=== PATIENT | male | born 1980 | race Hispanic/Latino ===

== ENCOUNTER 2018-12-10 20:15 | Inpatient (IN) | payer MEDICAID, OTHER ==
[2018-12-10] MEDS ORDERED: Sodium Chloride 0.9% 1,000 ML IV STA ×3 (20:38→23:09)
[2018-12-10] MEDS ORDERED: Famotidine 20mg/50ml 20 MG/50 ML BAG IVPB STA (20:38)
--- NOTE | 2018-12-10 20:50 | ED PDOC ---
Arrival/HPI - General Historian: Patient - History of Present Illness Narrative History of Present Illness (Text): Patient is a 38 yr old male with PMH Cystic fibrosis well controlled for many years who presents to [facility] emergency department with new onset epigastric abdominal pain beginning at approximately noon today. He has had associated chills, nausea and 6 episodes of NBNB emesis. Last normal BM was last night 10 pm after having sol[place] islander food for dinner with no immediate symptoms. He endorses worsening pain when taking a deep breath. He otherwise denies MADRIGAL, CP, SOB, dizz iness, fevers, dysuria, stool changes, diarrhea and extremity pain/weakness. 12/10/18 20:45 Time/Duration: Prior to Arrival, 4-6 hours Symptom Onset: Sudden Symptom Course: Worsening Quality: Aching, Cramping Severity Level: 8 <Cookie Polo - Last Filed: 12/10/18 22:48> <Jose Angel - Last Filed: 12/10/18 23:45> - General Chief Complaint: Abdominal Pain Time Seen by Provider: 12/10/18 20:40 Past Medical History - Provider Review Nursing Documentation Reviewed: Yes - Infectious Disease Hx of Infectious Diseases: None - Cardiac Hx Cardiac Disorders: No - Pulmonary Hx Respiratory Disorders: Yes Other/Comment: Cystic Fibrosis - Neurological Hx Neurological Disorder: No - HEENT Hx HEENT Disorder: No - Renal Hx Renal Disorder: No - Endocrine/Metabolic Hx Endocrine Disorders: No - Hematological/Oncological Hx Blood Disorders: No - Integumentary Hx Dermatological Disorder: No - Musculoskeletal/Rheumatological Hx Musculoskeletal Disorders: No - Gastrointestinal Hx Gastrointestinal Disorders: No - Genitourinary/Gynecological Hx Genitourinary Disorders: No - Psychiatric Hx Psychophysiologic Disorder: No Hx Substance Use: Yes - Surgical History Other/Comment: oral surgery - Anesthesia Hx Anesthesia: Yes Hx Anesthesia Reactions: No Hx Malignant Hyperthermia: No <Cookie Polo - Last Filed: 12/10/18 22:48> Family/Social History - Physician Review Nursing Documentation Reviewed: Yes Family/Social History: Unknown Family HX Smoking Status: Light Smoker < 10 Cigarettes Daily Hx Alcohol Use: Yes Frequency of alcohol use: Socially Hx Substance Use: Yes <Cookie Polo - Last Filed: 12/10/18 22:48> Allergies/Home Meds <Cookie Polo - Last Filed: 12/10/18 22:48> <JeanneJose ibarra - Last Filed: 12/10/18 23:45> Allergies/Adverse Reactions: Allergies No Known Allergies Allergy (Verified 12/10/18 20:22) Home Medications: Home Meds Medication Instructions Recorded Confirmed No Known Home Med 12/10/18 12/10/18 Review of Systems - Physician Review All systems were reviewed & negative as marked: Yes - Review of Systems Constitutional: Fatigue. absent: Fevers Eyes: absent: Vision Changes Respiratory: absent: SOB, Cough Cardiovascular: absent: Chest Pain Gastrointestinal: Abdominal Pain, Nausea, Vomiting. absent: Stool Changes, Diarrhea, Hematochezia, Hematemesis Genitourinary Male: absent: Dysuria Musculoskeletal: absent: Arthralgias Skin: absent: Skin Lesions, Laceration Neurological: absent: Headache, Dizziness Endocrine: absent: Diaphoresis <Cookie Polo - Last Filed: 12/10/18 22:48> Physical Exam Vital Signs Reviewed: Yes Vital Signs Temp Pulse Resp BP Pulse Ox 12/10/18 20:16 97.4 F L 69 16 140/92 H 99 Temperature: Afebrile Blood Pressure: Normal Pulse: Regular Respiratory Rate: Normal Appearance: Positive for: Non-Toxic, Uncomfortable Pain Distress: Moderate Mental Status: Positive for: Alert and Oriented X 3 - Systems Exam Head: Present: Atraumatic, Normocephalic Extroacular Muscles: Present: EOMI Mouth: Present: Dry Neck: Present: Normal Range of Motion Respiratory/Chest: Present: Good Air Exchange, Rhonchi (upper and lower lobes bilaterally). No: Respiratory Distress, Accessory Muscle Use, Wheezes, Rales Cardiovascular: Present: Regular Rate and Rhythm, Normal S1, S2. No: Murmurs Abdomen: Present: Tenderness, Guarding. No: Distention, Scars Upper Extremity: Present: Normal Inspection, NORMAL PULSES. No: Cyanosis, Edema Lower Extremity: Present: Normal Inspection, NORMAL PULSES. No: Edema, CALF TENDERNESS Neurological: Present: GCS=15, CN II-XII Intact, Speech Normal Skin: Present: Warm, Dry, Normal Color. No: Rashes Psychiatric: Present: Alert, Oriented x 3, Normal Insight, Normal Concentration <Jennifer Poloah - Last Filed: 12/10/18 22:48> Vital Signs Temp Pulse Resp BP Pulse Ox 12/10/18 20:16 97.4 F L 69 16 140/92 H 99 <Jose Angel - Last Filed: 12/10/18 23:45> Medical Decision Making ED Course and Treatment: impression: 38 yr old male with PMH cystic fibrosis presenting with new onset epigastric abdominal pain nausea vomiting and chills Plan CBC CMP lipase IVF pain control zofran pepcid CXR A/P CT reassess and dispo 12/10/18 20:55 CXR negative for free air under diaphragm, lung markings consistent with cystic fibrosis (my read) 12/10/18 22:17 Lipase>[id number] 12/10/18 22:[address] Amador and medical coding technician, agreed to come evaluate for admission 12/10/18 22:35 - Lab Interpretations Lab Results: 12/10/18 20:30 12/10/18 20:30 Lab Results 12/10/18 20:30: Sodium 140, Potassium 4.3, Chloride 103, Carbon Dioxide 29, Anion Gap 12, BUN 17, Creatinine 0.7 L, Est GFR ( Amer) > 60, Est GFR (Non-Af Amer) > 60, Random Glucose 123 H, Calcium 10.0, Total Bilirubin 0.5, AST 39, ALT 59 H, Alkaline Phosphatase 119, Total Protein 7.6, Albumin 4.6, Globulin 2.9, Albumin/Globulin Ratio 1.6 12/10/18 20:30: WBC 17.2 H, RBC 5.26, Hgb 16.3, Hct 48.1, MCV 91.4, MCH 31.0, MCHC 33.9, RDW 13.2, Plt Count 315, MPV 10.0, Gran % 89.0 H, Lymph % (Auto) 4.1 L, [place] % (Auto) 6.7 H, Eos % (Auto) 0.1 L, Baso % (Auto) 0.1, Gran # 15.32 H, Lymph # (Auto) 0.7 L, [place] # (Auto) 1.2 H, Eos # (Auto) 0.0, Baso # (Auto) 0.01, Neutrophils % (Manual) 89 H, Band Neutrophils % 2, Lymphocytes % (Manual) 4 L, Atypical Lymphs % 3 H, Monocytes % (Manual) 2 Lipase 10,580 - RAD Interpretation Radiology Orders: 12/10/18 20:38 ABD & PELVIS IV CONTRAST ONLY [CT] Stat - Medication Orders Current Medication Orders: Famotidine (Pepcid 20mg/50ml Premix) 20 mg in 50 mls @ 100 mls/hr IVPB STAT STA Stop: 12/10/18 21:07 Sodium Chloride (Sodium Chloride 0.9%) 1,000 mls @ 999 mls/hr IV .Q1H1M STA Stop: 12/10/18 21:38 Ketorolac Tromethamine (Toradol) 30 mg IVP STAT STA Stop: 12/10/18 20:43 Discontinued Medications Ondansetron HCl (Zofran Inj) 4 mg IVP STAT STA Stop: 12/10/18 20:39 <Cookie Polo - Last Filed: 12/10/18 22:48> ED Course and Treatment: Impression: Pt seen and evaluated with resident. Aware and agree with HPI, clinical findings, plan, and management. Pt, whose past medical history includes cystic fibrosis, presented for epigastric abdominal pain with associated chills, nausea, and non-bloody/non-bilious vomiting. Plan: -- CT Abdomen and Pelvis with IV contrast -- CXR -- Labs, lipase -- IV fluids -- Zofran -- Pepcid -- Toradol -- Reassess and disposition 12/10/18 22:35 CT Abdomen and Pelvis: LUNG BASES: The lung bases appear clear. No pleural effusions are seen. LIVER: Unremarkable. GALLBLADDER AND BILE DUCTS: The gallbladder appears within normal limits. No radioopaque gallstones are seen. No biliary ductal dilatation is evident. PANCREAS: Marked peripancreatic stranding is present consistent with acute pancreatitis. Multiple peripancreatic fluid collections/ascites present. There is no evidence of a pancreatis mass. There is no pancreatic ductal dilatation. SPLEEN: Unremarkable. ADRENAL GLANDS: Unremarkable. KIDNEYS, URETERS, AND BLADDER: The kidneys appear within normal limits. There is no hydronephrosis or hydroureter. No urinary calculi are seen. STOMACH AND BOWEL: Unremarkable appearance of the stomach and bowel. No evidence of bowel obstruction. No evidence suggesting enteritis or colitis. APPENDIX: No evidence of acute appendicitis on CT examination. PERITONEUM: Multiple peripancreatic fluid collections/ascites present. No free air. LYMPH NODES: No lymphadenopathy is evident. REPRODUCTIVE: Unremarkable as visualized. VASCULATURE: No evidence of abdominal aortic aneurysm. BONES: No aggressive appearing osseous lesion. No acute osseous pathology evident. IMPRESSION: Acute pancreatitis. Multiple peripancreatic fluid collections/ascites present. There is no evidence of a pancreatis mass. There is no pancreatic ductal dilat ation. Electronically signed on Dec 10, 2018 10:05:39 PM EST by: Miguel Delvalle M.D., MELE Certified By ABR & CBCCT Fellowship Trained MRI and CT Specialist 12/10/18 22:[address] Amador, who is aware and agree with plan. Accepts pt in to hospitalist service. presidential support specialist corrections counselor notified. - Lab Interpretations Lab Results: Total Bilirubin 0.5 mg/dL (0.2-1.3) 12/10/18 20:30 AST 39 U/L (17-59) 12/10/18 20:30 ALT 59 U/L (7-56) H 12/10/18 20:30 Alkaline Phosphatase 119 U/L (38-126) 12/10/18 20:30 Total Protein 7.6 g/dL (5.8-8.3) 12/10/18 20:30 Albumin 4.6 g/dL (3.0-4.8) 12/10/18 20:30 Globulin 2.9 gm/dL 12/10/18 20:30 Albumin/Globulin Ratio 1.6 (1.1-1.8) 12/10/18 20:30 - RAD Interpretation Radiology Orders: 12/10/18 20:38 ABD & PELVIS IV CONTRAST ONLY [CT] Stat 12/10/18 20:50 CHEST ONE VIEW [RAD] Stat - Medication Orders Current Medication Orders: Sodium Chloride (Sodium Chloride 0.9%) 1,000 mls @ 999 mls/hr IV .Q1H1M STA Stop: 12/10/18 21:38 Last Admin: 12/10/18 20:51 Dose: 999 mls/hr eMAR Start Stop Document 12/10/18 20:51 JOL (Rec: 12/10/18 20:51 JOL [id number]) Intravenous Solution Start Date 12/10/18 Start Time 20:51 End Date 12/10/18 End time 21:52 Total Infusion Time 61 Discontinued Medications Famotidine (Pepcid 20mg/50ml Premix) 20 mg in 50 mls @ 100 mls/hr IVPB STAT STA Stop: 12/10/18 21:07 Last Admin: 12/10/18 20:51 Dose: 100 mls/hr eMAR Start Stop Document 12/10/18 20:51 JOL (Rec: 12/10/18 20:51 [id number] Intravenous Solution Start Date 12/10/18 Start Time 20:51 End Date 12/10/18 End time 21:21 Total Infusion Time 30 Ketorolac Tromethamine (Toradol) 30 mg IVP STAT STA Stop: 12/10/18 20:43 Last Admin: 12/10/18 20:45 Dose: 30 mg MAR Pain Assessment Document 12/10/18 20:45 JOL (Rec: 12/10/18 21:14 [id number] Pain Reassessment Is this a pain reassessment? No Sleep Is patient sleeping during reassessment? No Presence of Pain Presence of Pain Yes Pain Scale Used Protocol: PSCALES Pain Scale Used Numeric Location Upper or Lower Upper Pain Location Body Site Abdomen Description Intensity of Pain at present 8 IVP Administration Document 12/10/18 20:45 JOL (Rec: 12/10/18 21:14 [id number] Charges for Administration # of IVP Administrations 1 Ondansetron HCl (Zofran Inj) 4 mg IVP STAT STA Stop: 12/10/18 20:39 Last Admin: 12/10/18 20:50 Dose: 4 mg IVP Administration Document 12/10/18 20:50 JOL (Rec: 12/10/18 20:51 [id number]) Charges for Administration # of IVP Administrations 1 <Jose Angel - Last Filed: 12/10/18 23:45> - PA / SENIOR BENEFITS SPECIALIST / Resident Statement LISA has reviewed & agrees with the documentation as recorded. LISA has examined the patient and agrees with the treatment plan. <Jose Angel - Last Filed: 12/10/18 23:45> Disposition/Present on Arrival - Present on Arrival Any Indicators Present on Arrival: No History of DVT/PE: No History of Uncontrolled Diabetes: No Urinary Catheter: No History of Decub. Ulcer: No History Surgical Site Infection Following: None - Disposition Have Diagnosis and Disposition been Completed?: Yes Disposition Time: 22:29 Patient Plan: Admission <Cookie Polo - Last Filed: 12/10/18 22:48> <Jose Angel - Last Filed: 12/10/18 23:45> - Disposition Diagnosis: Acute pancreatitis Disposition: HOSPITALIZED Patient Problems: Current Active Problems Problem Status Onset Acute pancreatitis Acute Condition: GOOD
[2018-12-10 20:54] LABS: BASO # 0.01 K/mm3 (0.0-2.0); BASO % 0.1 % (0.0-3.0); EOS % 0.1 % (1.5-5.0); GRAN # 15.32 (1.4-6.5); HEMOGLOBIN 16.3 g/dL (14.0-18.0); LYMPH # 0.7 (1.2-3.4); LYMPH % 4.1 % (22.0-35.0); MEAN CELL VOLUME 91.4 fl (80.0-105.0); MEAN CORPUSCULAR HGB CONC 33.9 g/dl (31.0-37.0); MONO # 1.2 (0.1-0.6); MONO % 6.7 % (1.0-6.0); PLATELET COUNT 315 10^3/uL (120.0-450.0); RBC 5.26 10^6/uL (3.5-6.1); RED CELL DISTRIBUTION WIDTH 13.2 % (11.5-14.5); WHITE BLOOD COUNT 17.2 10^3/uL (4.5-11.0)
[2018-12-10 20:55] LABS: ALB/GLOB RATIO 1.6 (1.1-1.8); ALBUMIN 4.6 g/dL (3.0-4.8); ALT/SGPT 59 U/L (7-56); AST/SGOT 39 U/L (17-59); BLOOD UREA NITROGEN 17 mg/dL (7-21); GFR NON-AFRICAN AMERICAN > 60
[2018-12-10] MEDS ORDERED: Iohexol 350 MG/100 ML VIAL ONE (21:03)
[2018-12-10 21:33] LABS: ATYPICAL LYMPHOCYTE 3 % (0.0-0.0); BAND 2 % (0-2); LYMPHOCYTE 4 % (22.0-35.0); MONOCYTE 2 % (1.0-6.0); NEUTROPHIL 89 % (50.0-70.0)
[2018-12-10] MEDS ORDERED: metroNIDAZOLE IV 500 mg/100 ml 500 MG/100 ML BAG IVPB STA (22:31)
[2018-12-10] MEDS ORDERED: Morphine 2 mg/ml ISec IM PRN (23:05)
--- NOTE | 2018-12-10 23:18 | CP.PCM.HP ---
<Asa Seo - Last Filed: 12/11/18 00:06> History of Present Illness - History of Present Illness History of Present Illness: Asa Seo, PGY-1, Internal Medicine History and Physical for Dr. Amador 38 year old male with past medical history of Cystic Fibrosis presents with severe abdominal pain that started at 11:00 AM on 12/10. Patient reports that he woke up at 8:00 on 12/10, went to urinate and went back to sleep. He woke up at 11:00, urinated again, and after drinking some milk, started to have sharp, constant supraumbilical abdominal pain that radiated to the back. No exa cerbating or relieving factors were present. He has had 6 episodes of nonbloody vomitus today. His last normal bowel movement was on 12/09 around 19:00. Patient reports shortness of breath correlated to the abdominal pain which has not allowed him to take a full breath. Patient denies fever, chest pain, heart palpitations, constipation, diarrhea, dysuria, hematuria. 12-point ROS was negative except for what was mentioned above. PMH: Cystic Fibrosis PSH: oral surgery in 1999 Allergies: NKDA FMHx: diabetes mellitus, hypertension, thyroid cancer, cirrhosis, COPD SHx: 3 margaritas last night; generally drinks 2-3 times weekly. He smokes 1/2 PPD for 15 years; he uses marijuana occasionally and last used last night at 23:00 PMD: denies Pharmacy: denies Home Rx: denies Present on Admission - Present on Admission Any Indicators Present on Admission: No Review of Systems - Review of Systems Review of Systems: except for what is mentioned in the HPI Past Patient History - Infectious Disease Hx of Infectious Diseases: None - Past Social History Smoking Status: Light Smoker < 10 Cigarettes Daily - CARDIAC Hx Cardiac Disorders: No - PULMONARY Hx Respiratory Disorders: Yes Other/Comment: Cystic Fibrosis - NEUROLOGICAL Hx Neurological Disorder: No - HEENT Hx HEENT Problems: No - RENAL Hx Chronic Kidney Disease: No - ENDOCRINE/METABOLIC Hx Endocrine Disorders: No - HEMATOLOGICAL/ONCOLOGICAL Hx Blood Disorders: No - INTEGUMENTARY Hx Dermatological Problems: No - MUSCULOSKELETAL/RHEUMATOLOGICAL Hx Musculoskeletal Disorders: No - GASTROINTESTINAL Hx Gastrointestinal Disorders: No - GENITOURINARY/GYNECOLOGICAL Hx Genitourinary Disorders: No - PSYCHIATRIC Hx Psychophysiologic Disorder: No Hx Substance Use: Yes - SURGICAL HISTORY Other/Comment: oral surgery - ANESTHESIA Hx Anesthesia: Yes Hx Anesthesia Reactions: No Hx Malignant Hyperthermia: No Meds Allergies/Adverse Reactions: Allergies Allergy/AdvReac Type Severity Reaction Status Date / Time No Known Allergies Allergy Verified 12/10/18 20:22 Physical Exam - Constitutional Appears: Well, Non-toxic, No Acute Distress - Head Exam Head Exam: ATRAUMATIC, NORMAL INSPECTION, NORMOCEPHALIC - Eye Exam Eye Exam: EOMI, PERRL - ENT Exam ENT Exam: Mucous Membranes Moist - Respiratory Exam Respiratory Exam: Clear to Auscultation Bilateral, NORMAL BREATHING PATTERN - Cardiovascular Exam Cardiovascular Exam: REGULAR RHYTHM, RRR - GI/Abdominal Exam GI & Abdominal Exam: Hypoactive Bowel Sounds, Soft, Tenderness (supraumbilical). absent: Guarding, Rebound, Rigid - Extremities Exam Extremities exam: Positive for: full ROM - Neurological Exam Neurological exam: Alert, CN II-XII Intact, Oriented x3 - Skin Skin Exam: Dry, Intact, Normal Color Results - Vital Signs Recent Vital Signs: Last Vital Signs Temp 97.4 F L 12/10/18 20:16 Pulse 69 12/10/18 20:16 Resp 16 12/10/18 20:16 BP 140/92 H 12/10/18 20:16 Pulse Ox 99 12/10/18 20:16 - Labs Result Diagrams: 12/10/18 20:30 12/10/18 20:30 Labs: Laboratory Results - last 24 hr 12/10/18 12/10/18 12/10/18 20:30 20:30 20:30 WBC 17.2 H RBC 5.26 Hgb 16.3 Hct 48.1 MCV 91.4 MCH 31.0 MCHC 33.9 RDW 13.2 Plt Count 315 MPV 10.0 Gran % 89.0 H Lymph % (Auto) 4.1 L [place] % (Auto) 6.7 H Eos % (Auto) 0.1 L Baso % (Auto) 0.1 Gran # 15.32 H Lymph # (Auto) 0.7 L [place] # (Auto) 1.2 H Eos # (Auto) 0.0 Baso # (Auto) 0.01 Neutrophils % (Manual) 89 H Band Neutrophils % 2 Lymphocytes % (Manual) 4 L Atypical Lymphs % 3 H Monocytes % (Manual) 2 Sodium 140 Potassium 4.3 Chloride 103 Carbon Dioxide 29 Anion Gap 12 BUN 17 Creatinine 0.7 L Est GFR ( Amer) > 60 Est GFR (Non-Af Amer) > 60 Random Glucose 123 H Calcium 10.0 Total Bilirubin 0.5 AST 39 ALT 59 H Alkaline Phosphatase 119 Total Protein 7.6 Albumin 4.6 Globulin 2.9 Albumin/Globulin Ratio 1.6 Lipase 33940 H Assessment & Plan - Assessment and Plan (Free Text) Assessment: 38 year old male with past medical history of Cystic Fibrosis presents with severe abdominal pain that started at 11:00 AM on 12/10. Abdominal CT shows pancreatitis with multiple fluid collections/ascites present. No evidence of pancreatic mass. No pancreatic duct dilation. Plan: Acute pancreatitis -History of pancreatitis -Possible etiology of cystic fibrosis. -Evaluate for other causes with serum alcohol level, UDS, and lipid panel for alcohol induced vs. hypertriglyceridemia induced vs. tobacco induceed -Abdominal U/S in the morning to evaluate for gallstone induced pancreatitis -NPO -IV fluids at 150cc/hr -Morphine for severe pain and toradol for moderate pain -Zofran PRN for nausea/vomiting -GI, Dr. Banks, consulted for recommendations. Leukocytosis -WBC: 17.2 -Likely due to pancreatitis, but cannot rule out infection -CXR shows no evidence of infection -Blood culture ordered -Patient given one dose of flagyl and ceftriaxone in the ED GI prophylaxis: protonix 40 mg daily DVT prophylaxis: lovenox 40 mg daily Patient plan discussed with Dr. Amador. - Date & Time Date: 12/11/18 Time: 00:05 <Ludivina Amador - Last Filed: 12/11/18 06:20> Results - Vital Signs Recent Vital Signs: Last Vital Signs Temp 97.4 F L 12/10/18 20:16 Pulse 69 12/10/18 20:16 Resp 18 12/11/18 01:13 BP 140/92 H 12/10/18 20:16 Pulse Ox 99 12/10/18 20:16 - Labs Result Diagrams: 12/10/18 20:30 12/10/18 20:30 Labs: Laboratory Results - last 24 hr 12/10/18 12/10/18 12/10/18 20:30 20:30 20:30 WBC 17.2 H RBC 5.26 Hgb 16.3 Hct 48.1 MCV 91.4 MCH 31.0 MCHC 33.9 RDW 13.2 Plt Count 315 MPV 10.0 Gran % 89.0 H Lymph % (Auto) 4.1 L [place] % (Auto) 6.7 H Eos % (Auto) 0.1 L Baso % (Auto) 0.1 Gran # 15.32 H Lymph # (Auto) 0.7 L [place] # (Auto) 1.2 H Eos # (Auto) 0.0 Baso # (Auto) 0.01 Neutrophils % (Manual) 89 H Band Neutrophils % 2 Lymphocytes % (Manual) 4 L Atypical Lymphs % 3 H Monocytes % (Manual) 2 Sodium 140 Potassium 4.3 Chloride 103 Carbon Dioxide 29 Anion Gap 12 BUN 17 Creatinine 0.7 L Est GFR ( Amer) > 60 Est GFR (Non-Af Amer) > 60 Random Glucose 123 H Calcium 10.0 Total Bilirubin 0.5 AST 39 ALT 59 H Alkaline Phosphatase 119 Total Protein 7.6 Albumin 4.6 Globulin 2.9 Albumin/Globulin Ratio 1.6 Triglycerides Cholesterol LDL Cholesterol Direct HDL Cholesterol Lipase 55106 H Alcohol, Quantitative 12/10/18 12/10/18 20:30 22:03 WBC RBC Hgb Hct MCV MCH MCHC RDW Plt Count MPV Gran % Lymph % (Auto) [place] % (Auto) Eos % (Auto) Baso % (Auto) Gran # Lymph # (Auto) [place] # (Auto) Eos # (Auto) Baso # (Auto) Neutrophils % (Manual) Band Neutrophils % Lymphocytes % (Manual) Atypical Lymphs % Monocytes % (Manual) Sodium Potassium Chloride Carbon Dioxide Anion Gap BUN Creatinine Est GFR ( Amer) Est GFR (Non-Af Amer) Random Glucose Calcium Total Bilirubin AST ALT Alkaline Phosphatase Total Protein Albumin Globulin Albumin/Globulin Ratio Triglycerides 55 Cholesterol 160 LDL Cholesterol Direct 94 HDL Cholesterol 50 Lipase Alcohol, Quantitative < 10 Attending/Attestation - Attestation I have personally seen and examined this patient.: Yes I have fully participated in the care of the patient.: Yes I have reviewed all pertinent clinical information: Yes
[2018-12-11 00:11] LABS: HDL CHOLESTEROL 50 mg/dL (29-60)
[2018-12-11 00:21] LABS: LDL CHOLESTEROL 94 mg/dL (0-129)
[2018-12-11] MEDS: Morphine 2 mg/ml ISec IVP PRN ×2 (00:41→20:25)
[2018-12-11 04:28] VITALS: BMI 25.8
[2018-12-11 06:50] LABS: BASO # 0.01 K/mm3 (0.0-2.0); BASO % 0.1 % (0.0-3.0); EOS # 0.1 (0.0-0.7); EOS % 0.5 % (1.5-5.0); GRAN # 8.89 (1.4-6.5); HEMOGLOBIN 14.6 g/dL (14.0-18.0); LYMPH # 0.9 (1.2-3.4); MEAN CELL VOLUME 91.3 fl (80.0-105.0); MEAN CORPUSCULAR HEMOGLOBIN 30.1 pg (25.0-35.0); MEAN PLATELET VOLUME 9.9 fl (7.0-11.0); MONO % 9.4 % (1.0-6.0); RBC 4.85 10^6/uL (3.5-6.1); RED CELL DISTRIBUTION WIDTH 13.5 % (11.5-14.5); WHITE BLOOD COUNT 10.8 10^3/uL (4.5-11.0)
[2018-12-11 07:41] LABS: ALB/GLOB RATIO 1.4 (1.1-1.8); ALBUMIN 3.6 g/dL (3.0-4.8); ALT/SGPT 52 U/L (7-56); AST/SGOT 27 U/L (17-59); BLOOD UREA NITROGEN 17 mg/dL (7-21); GFR NON-AFRICAN AMERICAN > 60
--- NOTE | 2018-12-11 09:49 | CT ---
Date of service: 12/10/2018 PROCEDURE: CT Abdomen and Pelvis with contrast HISTORY: abd pain COMPARISON: December 11, 2018 abdominal ultrasound TECHNIQUE: Intravenous contrast dose: 100 cc Omnipaque 300 Radiation dose: Total exam DLP = 584.68 mGy-cm. This CT exam was performed using one or more of the following dose reduction techniques: Automated exposure control, adjustment of the mA and/or kV according to patient size, and/or use of iterative reconstruction technique. FINDINGS: LOWER THORAX: Unremarkable. LIVER: Hepatic steatosis. No focal masses. No intrahepatic bile duct dilatation or perihepatic ascites. No intrahepatic bile duct dilatation. No abnormalities with respect to the common bile duct. GALLBLADDER AND BILE DUCTS: Unremarkable. PANCREAS: Diffusely edematous pancreas. No CT evidence of necrotizing pancreatitis. Peripancreatic inflammatory changes. Associated ascites in the upper abdomen. SPLEEN: Unremarkable. ADRENALS: Unremarkable. No mass. KIDNEYS AND URETERS: Unremarkable. No hydronephrosis. No solid mass. VASCULATURE: Unremarkable. No aortic aneurysm. No atherosclerotic calcification or mural plaque present. BOWEL: Unremarkable. No obstruction. No gross mural thickening. APPENDIX: Normal appendix. PERITONEUM: Low volume upper abdominal, peripancreatic fluid. No free air. LYMPH NODES: Unremarkable. No enlarged lymph nodes. BLADDER: Unremarkable. REPRODUCTIVE: Unremarkable. BONES: No acute fracture. OTHER FINDINGS: None. IMPRESSION: CT manifestations of acute pancreatitis, diffuse. No evidence of necrotizing pancreatitis. Peripancreatic inflammatory changes and fluid. Additional benign and/or incidental findings described above. Concordant results (preliminary interpretation) provided by [employer]. Procedure Completed: 21:42. Preliminary Report: Dictated and Authenticated: 22:05. Final Interpretation: 09:45. December 11, 2018
[2018-12-11] MEDS: Enoxaparin 40 mg Syringe SC SCH (09:51)
[2018-12-11] MEDS ORDERED: cefTRIAXone 1 gm 1 GM/100 ML BAG IVPB SCH (10:00)
--- NOTE | 2018-12-11 10:00 | US ---
Date of service: 12/11/2018 HISTORY: Panchreatitis etiology COMPARISON: December 10, 2018. CT abdomen and pelvis. TECHNIQUE: Sonographic evaluation of the abdomen. FINDINGS: LIVER: Measures 16.1 cm. Hepatopedal blood flow. Fatty infiltration manifest ultrasonographically as increased echogenicity of the liver parenchyma. No mass. No intrahepatic bile duct dilatation.Incidental finding(s): Focal fatty sparing amalia hepatis region of the liver, the affected area measures 4.4 x 3.1 x 4.7 cm. GALLBLADDER: Cholelithiasis. Negative study for gallbladder wall thickening, pericholecystic fluid, sonographic Shannon's sign.Incidental finding(s): Echogenic foci likely small gallbladder polyps adherent to the wall of the gallbladder. COMMON BILE DUCT: Measures 4.7 mm. No stones. No dilatation. PANCREAS: Edematous pancreas better visualized on CT. No focal pancreatic abnormalities. RIGHT KIDNEY: Measures cm. Normal echogenicity. No calculus, mass, or hydronephrosis. LEFT KIDNEY: Measures cm. Normal echogenicity. No calculus, mass, or hydronephrosis. SPLEEN: Normal in size and contour. No mass. AORTA: No aneurysmal dilatation. IVC: Unremarkable. OTHER FINDINGS: Trace intra-abdominal fluid. IMPRESSION: Cholelithiasis. No sonographic evidence of acute cholecystitis. No evidence of choledocholithiasis. Edematous findings the pancreas consistent with acute pancreatitis-findings better visualized on recent CT.
--- NOTE | 2018-12-11 10:15 | RAD ---
Date of service: 12/10/2018 PROCEDURE: CHEST RADIOGRAPH, 1 VIEW HISTORY: hx of cystic fibrosis, r/o free air COMPARISON: None available. FINDINGS: LUNGS: Prominent interstitial markings without discrete infiltrate. PLEURA: No pneumothorax or pleural fluid seen. CARDIOVASCULAR: No aortic atherosclerotic calcification present. Normal. OSSEOUS STRUCTURES: No significant abnormalities. VISUALIZED UPPER ABDOMEN: Normal. OTHER FINDINGS: None. IMPRESSION: No visible free air. Increased interstitial markings consistent with clinical diagnosis of cystic fibrosis.
[2018-12-11] MEDS: Lactated Ringer's 1,000 ML IV SCH ×3 (11:05→22:19)
[2018-12-11] MEDS ORDERED: Morphine 2 mg/ml ISec IVP ONE (22:00)
[2018-12-12] MEDS: Morphine 2 mg/ml ISec IVP PRN ×4 (02:40→20:37)
[2018-12-12] MEDS: Lactated Ringer's 1,000 ML IV SCH ×3 (05:22→19:57)
[2018-12-12 07:08] LABS: BASO # 0.01 K/mm3 (0.0-2.0); BASO % 0.1 % (0.0-3.0); EOS # 0.2 (0.0-0.7); EOS % 2.1 % (1.5-5.0); GRAN # 5.81 (1.4-6.5); GRAN % 72.1 % (50.0-68.0); HEMOGLOBIN 13.7 g/dL (14.0-18.0); LYMPH # 1.3 (1.2-3.4); LYMPH % 16.2 % (22.0-35.0); MEAN CELL VOLUME 90.6 fl (80.0-105.0); MEAN CORPUSCULAR HGB CONC 33.1 g/dl (31.0-37.0); MEAN PLATELET VOLUME 9.8 fl (7.0-11.0); MONO # 0.8 (0.1-0.6); MONO % 9.5 % (1.0-6.0); RBC 4.57 10^6/uL (3.5-6.1); RED CELL DISTRIBUTION WIDTH 13.3 % (11.5-14.5); WHITE BLOOD COUNT 8.1 10^3/uL (4.5-11.0)
[2018-12-12 07:31] LABS: ALB/GLOB RATIO 1.3 (1.1-1.8); ALBUMIN 3.4 g/dL (3.0-4.8); ALT/SGPT 103 U/L (7-56); AST/SGOT 102 U/L (17-59); BLOOD UREA NITROGEN 8 mg/dL (7-21); GFR NON-AFRICAN AMERICAN > 60
--- NOTE | 2018-12-12 08:29 | CON ---
DATE: 12/11/2018 REQUESTING PHYSICIAN: Glenis Cornelius MD REASON FOR CONSULT: I have been asked to see this 38-year-old male with known cystic fibrosis who comes to the hospital with a 1-day history of severe abdominal pain. This was associated with several episodes of vomiting. He denies any prior history of pancreatitis. He did have several alcoholic beverages the night prior to admission. He drinks alcohol several times a week but not daily. He smokes up to half pack of cigarettes per day. He smokes marijuana recreationally. He denies any fevers or chills. Again, he denies any prior episode of pancreatitis. CT scan of the abdomen and pelvis reveals peripancreatic inflammation with fluid collections around the pancreas. His serum lipase level was over 10,000 with normal liver enzymes. PAST MEDICAL HISTORY: Notable for cystic fibrosis. SOCIAL HISTORY: He smokes a half pack of cigarettes per day. He consumes alcohol on a social basis. FAMILY HISTORY: Noncontributory. REVIEW OF SYSTEMS: A 14-point review of systems is notable for abdominal pain, nausea and vomiting. PHYSICAL EXAMINATION: GENERAL: Young male, lying in bed, in mild distress from abdominal pain. VITAL SIGNS: Reveal temperature of 97.9, blood pressure 123/57, heart rate 68. HEENT: Reveal sclerae to be white. Conjunctivae pink. NECK: Supple. CHEST: Lungs are clear. HEART: Regular rate and rhythm. ABDOMEN: Soft. Moderate mid abdominal tenderness diffusely. No rebound or guarding. EXTREMITIES: Show no edema. LABORATORY DATA: White blood cell count 10.8, hemoglobin 14.6. Chemistries reveal BUN 17, creatinine 0.7, lipase of 10,580. AST, ALT, alk phos were all normal. Ultrasound of the gallbladder shows gallstones and gallbladder polyp with ascites. IMPRESSION: A 38-year-old male with 1 day of severe abdominal pain with a CT scan of the abdomen showing acute pancreatitis with peripancreatic inflammation and fluid collections. The patient has two risk factors for pancreatitis including cystic fibrosis and gallstones. RECOMMENDATIONS: 1. Cholecystectomy when his pancreatitis cools down. 2. Continue n.p.o. 3. Continue IV fluid hydration. 4. Continue analgesics. Kp Banks MD [facility] # [id number]
[2018-12-12] MEDS: Enoxaparin 40 mg Syringe SC SCH (09:55)
[2018-12-12 13:00] LABS: HEPATITIS B SURFACE AG Negative (NEGATIVE)
[2018-12-12 13:09] LABS: HEPATITIS A IGM NEGATIVE (NEGATIVE); HEPATITIS B CORE AB NEGATIVE (NEGATIVE)
--- NOTE | 2018-12-12 13:14 | CP.PCM.CON ---
<Manuel Moses - Last Filed: 12/12/18 14:08> History of Present Illness - History of Present Illness History of Present Illness: Surgery 38 year old male with a past medical history of cystic fibrosis presented to the ED for evaluation of epigastric abdominal pain. Describes 10/10 sharp stabbing p ains since noon on 12/10/18. Pain radiates to back. There was associated nausea and several bouts of vomiting at onset. Denies any associated hematemesis, diarrhea, constipation, blood in stool, chest pain, or any other new symptoms. While in the ED, a CT ABD/Pelvis showed signs of acute pancreatitis. An ultrasound of the abdomen showed cholelithiasis without signs of cholecystisis. Patient admitted for pancreatitis and surgery consulted for possible gallstone pancreatitis . Patient denies any previous occurences of similar symptoms. He takes no daily medications. He stopped taking Ultrace MT for his cystic fibrosis in 2000 because he no longer has insurance. Patient drinks 3 alcoholic drinks 2- 3 times per week. Does not have a PMD. No other new concerns at this time. PSH: Oral surgery for broken tooth in 1996. Social: Lives with [facility]. 2 ppd for 20 years. Marijuana use 3x per day. 3 alcoholic drinks 2-3x per week. No other drug use Allergies: No medications allergies. Review of Systems - Constitutional Constitutional: absent: Fever - Cardiovascular Cardiovascular: absent: Chest Pain - Respiratory Respiratory: absent: Cough, Hemoptysis - Gastrointestinal Gastrointestinal: Abdominal Pain (epigastrics), Nausea, Vomiting. absent: Constipation, Diarrhea, Hematemesis, Hematochezia, Loose Stools - Genitourinary Genitourinary: absent: Dysuria, Hematuria Past Patient History - Infectious Disease Hx of Infectious Diseases: None - Past Social History Smoking Status: Never Smoked - CARDIAC Hx Cardiac Disorders: No - PULMONARY Hx Respiratory Disorders: Yes Other/Comment: Cystic Fibrosis - NEUROLOGICAL Hx Neurological Disorder: No - HEENT Hx HEENT Problems: No - RENAL Hx Chronic Kidney Disease: No - ENDOCRINE/METABOLIC Hx Endocrine Disorders: No - HEMATOLOGICAL/ONCOLOGICAL Hx Blood Disorders: No - INTEGUMENTARY Hx Dermatological Problems: No - MUSCULOSKELETAL/RHEUMATOLOGICAL Hx Musculoskeletal Disorders: No Hx Falls: No - GASTROINTESTINAL Hx Gastrointestinal Disorders: No - GENITOURINARY/GYNECOLOGICAL Hx Genitourinary Disorders: No - PSYCHIATRIC Hx Psychophysiologic Disorder: No Hx Substance Use: Yes - SURGICAL HISTORY Other/Comment: oral surgery - ANESTHESIA Hx Anesthesia: Yes Hx Anesthesia Reactions: No Hx Malignant Hyperthermia: No Meds Allergies/Adverse Reactions: Allergies Allergy/AdvReac Type Severity Reaction Status Date / Time No Known Allergies Allergy Verified 12/10/18 20:22 - Medications Medications: Current Medications Acetaminophen (Tylenol 325mg Tab) 650 mg PO Q6H PRN PRN Reason: Pain, Mild (1-3) Last Admin: 12/11/18 15:31 Dose: 650 mg Diphenhydramine HCl (Benadryl) 25 mg PO HS PRN PRN Reason: Insomnia Last Admin: 12/11/18 22:18 Dose: 25 mg Enoxaparin Sodium (Lovenox) 40 mg SC DAILY [facility]; Protocol Last Admin: 12/12/18 09:55 Dose: 40 mg Lactated Ringer's (Lactated Ringer's) 1,000 mls @ 150 mls/hr IV .Q6H40M [facility] Last Admin: 12/12/18 12:35 Dose: 150 mls/hr Morphine Sulfate (Morphine) 1 mg IVP Q4H PRN PRN Reason: Pain, severe (8-10) Last Admin: 12/12/18 12:41 Dose: 1 mg Ondansetron HCl (Zofran Inj) 4 mg IVP Q6H PRN PRN Reason: Nausea/Vomiting Last Admin: 12/11/18 22:19 Dose: 4 mg Pantoprazole Sodium (Protonix Inj) 40 mg IVP DAILY [facility] Last Admin: 12/12/18 09:55 Dose: 40 mg Physical Exam - Head Exam Head Exam: ATRAUMATIC, NORMAL INSPECTION, NORMOCEPHALIC - Eye Exam Eye Exam: Normal appearance - Respiratory Exam Respiratory Exam: Clear to Auscultation Bilateral, NORMAL BREATHING PATTERN - Cardiovascular Exam Cardiovascular Exam: REGULAR RHYTHM, RRR. absent: Rubs, Systolic Murmur - GI/Abdominal Exam GI & Abdominal Exam: Hyperactive Bowel Sounds, Soft, Tenderness (epigastric). absent: Distended, Guarding, Rebound - Extremities Exam Extremities exam: Positive for: normal inspection, pedal pulses present. Negative for: pedal edema - Back Exam Back exam: NORMAL INSPECTION - Neurological Exam Neurological exam: Alert, CN II-XII Intact, Oriented x3 - Psychiatric Exam Psychiatric exam: Normal Affect, Normal Mood - Skin Skin Exam: Dry, Intact, Normal Color Results - Vital Signs Recent Vital Signs: Last Vital Signs Temp 98.6 F 12/12/18 06:00 Pulse 72 12/12/18 06:00 Resp 19 12/12/18 06:00 BP 119/81 12/12/18 06:00 Pulse Ox 98 12/12/18 06:00 - Labs Result Diagrams: 12/12/18 06:50 12/12/18 06:50 Labs: Laboratory Results - last 24 hr 12/12/18 12/12/18 12/12/18 06:50 06:50 07:36 WBC 8.1 D RBC 4.57 Hgb 13.7 L Hct 41.4 L MCV 90.6 MCH 30.0 MCHC 33.1 RDW 13.3 Plt Count 220 MPV 9.8 Gran % 72.1 H Lymph % (Auto) 16.2 L Hardy % (Auto) 9.5 H Eos % (Auto) 2.1 Baso % (Auto) 0.1 Gran # 5.81 Lymph # (Auto) 1.3 Hardy # (Auto) 0.8 H Eos # (Auto) 0.2 Baso # (Auto) 0.01 Sodium 136 Potassium 3.8 Chloride 103 Carbon Dioxide 28 Anion Gap 9 L BUN 8 Creatinine 0.6 L Est GFR ( Amer) > 60 Est GFR (Non-Af Amer) > 60 Random Glucose 94 Calcium 9.0 Total Bilirubin 0.9 AST 102 H D ALT 103 H Alkaline Phosphatase 174 H D Total Protein 6.0 Albumin 3.4 Globulin 2.6 Albumin/Globulin Ratio 1.3 Hepatitis A IgM Ab Negative Hep Bs Antigen Negative Hep B Core IgM Ab Negative Assessment & Plan - Assessment and Plan (Free Text) Assessment: 38 year old male with a past medial history of cystic fibrosis presented to ED for abdominal pain with CT showing pancreatitis likely 2/2 to gallstones versus EtOH versus cystic fibrosis. Plan: Reviewed CT showing pancreatitis. US shows cholelithiasis with no evidence of cholecystitis. Pancreatitis possibly 2/2 gallstones versus EtOH abuse versus cystic fibrosis. Continue to progress patient diet as tolerated. Will consider cholecystectomy once symptoms and lab work improves WIll IMAN Peacock <Sage Peacock - Last Filed: 12/16/18 19:42> Results - Vital Signs Recent Vital Signs: Last Vital Signs Temp 97.1 F L 12/15/18 14:00 Pulse 55 L 12/15/18 14:00 Resp 22 12/15/18 14:00 BP 111/76 12/15/18 14:00 Pulse Ox 95 12/15/18 14:00 - Labs Result Diagrams: 12/15/18 05:30 12/15/18 05:30 Attending/Attestation - Attestation I have personally seen and examined this patient.: Yes I have fully participated in the care of the patient.: Yes I have reviewed all pertinent clinical information: Yes Notes (Text): Pt was seen and examined at bedside Agree with above note and assessment Pt with spasmodic upper abdominal pain and nausea Abdomen: Soft, ND, Tender in epigastric area Labs and radiology reviewed Ass: Abdominal pain, Pancreatitis with Gallstones Plan: Clear liquid diet GI consult MRCP repeat amylase, lipase c.w current mx Plan d.w pt in detail Risk and benefit explained in detail.
[2018-12-12 13:18] LABS: HEPATITIS C ANTIBODY NEGATIVE (NEGATIVE)
--- NOTE | 2018-12-12 13:51 | PN ---
DATE: 12/12/2018 SUBJECTIVE: The patient is lying in bed, states that his abdominal pain is less. He denies any further nausea or vomiting. He is tolerating clear liquid diet. OBJECTIVE: VITAL SIGNS: Reveal temperature of 98.6, blood pressure 119/81, heart rate of 72. HEENT: Reveal sclerae to be white. Conjunctivae pink. NECK: Supple. CHEST: Reveal lungs with decreased breath sounds. HEART: Reveals a regular rate and rhythm. ABDOMEN: Soft. There is [id number] epigastric tenderness with some voluntary guarding. There is no rebound. EXTREMITIES: Show no edema. LABORATORY DATA: Reveal hemoglobin 13.7, white blood cell count of 8.1, platelet count of 220,000. Chemistries reveal AST 102, ALT 103, alkaline phosphatase of 174. IMPRESSION: A 38-year-old male with known cystic fibrosis with 1 day of severe abdominal pain. Routine workup revealed an elevated lipase on admission of 10,580. CT scan of the abdomen and pelvis shows pancreatitis with peripancreatic inflammation and fluid collections surrounding the pancreas. Ultrasound of the abdomen showed gallstones and gallbladder polyp. RECOMMENDATIONS: 1. Continue IV fluids. 2. Surgical evaluation for cholecystectomy when pancreatitis cools down. 3. Continue IV fluid hydration. Kp Banks MD
--- NOTE | 2018-12-12 14:30 | CP.PCM.PN ---
<Nate Tolentino - Last Filed: 12/12/18 19:27> Subjective - Date & Time of Evaluation Date of Evaluation: 12/12/18 Time of Evaluation: 08:00 - Subjective Subjective: Nate Tolentino PGY1 Medicine Progress Note for Dr. Felton Patient was seen and examined at bedside this morning. Patient still has abdominal pain, rated 7/10. He says the morphine has been helping with his pain. Currently he is tolerating his liquid diet. Vital signs stable. No adverse overnight events. Denies fever, chills, nausea, vomiting, diarrhea, cp, sob. A full 12 point ROS was conducted and unremarkable except as stated above. Objective - Vital Signs/Intake and Output Vital Signs (last 24 hours): Temp Pulse Resp BP Pulse Ox 98.2 F 70 20 121/80 97 12/12/18 14:00 12/12/18 14:00 12/12/18 14:00 12/12/18 14:00 12/12/18 14:00 Intake and Output: 12/12/18 12/12/18 06:59 18:59 Intake Total 3600 Output Total 625 Balance 2975 - Medications Medications: Current Medications Acetaminophen (Tylenol 325mg Tab) 650 mg PO Q6H PRN PRN Reason: Pain, Mild (1-3) Last Admin: 12/11/18 15:31 Dose: 650 mg Diphenhydramine HCl (Benadryl) 25 mg PO HS PRN PRN Reason: Insomnia Last Admin: 12/11/18 22:18 Dose: 25 mg Enoxaparin Sodium (Lovenox) 40 mg SC DAILY [facility]; Protocol Last Admin: 12/12/18 09:55 Dose: 40 mg Lactated Ringer's (Lactated Ringer's) 1,000 mls @ 150 mls/hr IV .Q6H40M [facility] Last Admin: 12/12/18 12:35 Dose: 150 mls/hr Morphine Sulfate (Morphine) 1 mg IVP Q4H PRN PRN Reason: Pain, severe (8-10) Last Admin: 12/12/18 12:41 Dose: 1 mg Ondansetron HCl (Zofran Inj) 4 mg IVP Q6H PRN PRN Reason: Nausea/Vomiting Last Admin: 12/11/18 22:19 Dose: 4 mg Pantoprazole Sodium (Protonix Inj) 40 mg IVP DAILY [facility] Last Admin: 12/12/18 09:55 Dose: 40 mg - Labs Labs: 12/12/18 06:50 12/12/18 06:50 - Constitutional Appears: No Acute Distress - Head Exam Head Exam: ATRAUMATIC, NORMAL INSPECTION, NORMOCEPHALIC - Eye Exam Eye Exam: Normal appearance - ENT Exam ENT Exam: Mucous Membranes Moist - Respiratory Exam Respiratory Exam: Clear to Ausculation Bilateral. absent: Rales, Rhonchi, Wheezes - Cardiovascular Exam Cardiovascular Exam: RRR, +S1, +S2 - GI/Abdominal Exam GI & Abdominal Exam: Soft, Tenderness (Mid-epigastric tenderness with tenderness at mid-back), Normal Bowel Sounds. absent: Firm, Guarding, Rigid, Rebound - Extremities Exam Extremities Exam: Full ROM, Normal Capillary Refill. absent: Tenderness - Neurological Exam Neurological Exam: Alert, Awake, Oriented x3 - Psychiatric Exam Psychiatric exam: Normal Affect, Normal Mood - Skin Skin Exam: Dry, Intact, Normal Color, Warm Assessment and Plan - Assessment and Plan (Free Text) Assessment: Patient is a 38 y/o M with past PMHx of Cystic Fibrosis who presented to [facility] with severe mid-epigastric abdominal pain with radiation to the back. Lipase was significantly elevated and Abdominal CT showed acute pancreatitis. Patient also found to have cholelithiasis on abdominal US. Patient is admitted for acute pancreatitis 2/2 cholelithiasis vs EtOH use vs Cystic Fibrosis. Plan: Acute pancreatitis 2/2 Cholelithiasis vs EtOH use vs Cystic Fibrosis - Abdominal US (12/11): evidence of cholelithiasis. No signs of acute cholecystitis or choledocholithiasis. - CT abdomen/Pelvis (12/10): consistent with acute pancreatitis. - Surgery consulted for cholelithiasis. Will f/u recommendations. - Patient has Hx of cystic fibrosis and alcohol abuse, which may also be potential cause of acute pancreatitis - Morphine tapered to 1 mg q4 for pain control - Tolerating liquid diet - c/w LR at 150 cc/hr - Zofran PRN for nausea/vomiting - GI is on consult. Will follow up recommendations. - Lipid panel is within normal limits - Lipase was 10,580 on admission Transaminitis - AST/ALT uptrending to 102/103 from ; patient may have passed stone - Hepatitis panel is negative Leukocytosis likely 2/2 Pancreatitis - improved - WBC downtrending 8.1 from 17.2 - Afebrile - CXR was negative for infection - f/u Blood culture GI ppx: protonix 40 mg daily DVT ppx: lovenox 40 mg daily Dispo: will continue to monitor patient on the floor. Follow up recommendations as per surgery for possible cholecystectomy. Case was discussed and reviewed with Attending Physician, Dr. Felton <Cody Felton - Last Filed: 12/13/18 07:22> Objective - Vital Signs/Intake and Output Vital Signs (last 24 hours): Temp Pulse Resp BP Pulse Ox 99.5 F 68 18 118/72 98 12/12/18 21:42 12/12/18 21:42 12/12/18 21:42 12/12/18 21:42 12/12/18 21:42 Intake and Output: 12/12/18 12/13/18 18:59 06:59 Intake Total 3960 Output Total 300 Balance 3660 - Medications Medications: Current Medications Acetaminophen (Tylenol 325mg Tab) 650 mg PO Q6H PRN PRN Reason: Pain, Mild (1-3) Last Admin: 12/12/18 17:11 Dose: 650 mg Diphenhydramine HCl (Benadryl) 25 mg PO HS PRN PRN Reason: Insomnia Last Admin: 12/12/18 21:36 Dose: 25 mg Enoxaparin Sodium (Lovenox) 40 mg SC DAILY [facility]; Protocol Last Admin: 12/12/18 09:55 Dose: 40 mg Lactated Ringer's (Lactated Ringer's) 1,000 mls @ 150 mls/hr IV .Q6H40M [facility] Last Admin: 12/12/18 19:57 Dose: 150 mls/hr Morphine Sulfate (Morphine) 1 mg IVP Q4H PRN PRN Reason: Pain, severe (8-10) Last Admin: 12/13/18 02:01 Dose: 1 mg Ondansetron HCl (Zofran Inj) 4 mg IVP Q6H PRN PRN Reason: Nausea/Vomiting Last Admin: 12/11/18 22:19 Dose: 4 mg Pantoprazole Sodium (Protonix Inj) 40 mg IVP DAILY [facility] Last Admin: 12/12/18 09:55 Dose: 40 mg - Labs Labs: 12/12/18 06:50 12/12/18 06:50 Attending/Attestation - Attestation I have personally seen and examined this patient.: Yes I have fully participated in the care of the patient.: Yes I have reviewed all pertinent clinical information, including history, physical exam and plan: Yes Notes (Text): 12/12/18 38 year old male with past medical history of cystic fibrosis who presented with epigastric pain found to have pancreatitis secondary to alcohol vs gallstones as seen on ultrasound. Continue with slow diet advancement as tolerated. Continue with iv fluids. GI and surgery are following; consider cholecystectomy once pancreatitis improves. LFTs are elevated today; will continue to monitor. Hepatitis panel was negative. Patient was counselled on alcohol abstinence. Cody Felton MD Hospitalist.
[2018-12-13] MEDS: Morphine 2 mg/ml ISec IVP PRN ×2 (02:01→09:25)
[2018-12-13 07:05] LABS: BASO # 0.03 K/mm3 (0.0-2.0); BASO % 0.4 % (0.0-3.0); EOS # 0.5 (0.0-0.7); EOS % 5.7 % (1.5-5.0); GRAN # 5.07 (1.4-6.5); GRAN % 63.8 % (50.0-68.0); HEMOGLOBIN 13.7 g/dL (14.0-18.0); LYMPH # 1.3 (1.2-3.4); LYMPH % 16.1 % (22.0-35.0); MEAN CELL VOLUME 90.7 fl (80.0-105.0); MEAN CORPUSCULAR HEMOGLOBIN 30.2 pg (25.0-35.0); MEAN CORPUSCULAR HGB CONC 33.3 g/dl (31.0-37.0); MONO # 1.1 (0.1-0.6); RBC 4.54 10^6/uL (3.5-6.1); RED CELL DISTRIBUTION WIDTH 13.3 % (11.5-14.5); WHITE BLOOD COUNT 7.9 10^3/uL (4.5-11.0)
[2018-12-13 07:42] LABS: ALB/GLOB RATIO 1.3 (1.1-1.8); ALBUMIN 3.4 g/dL (3.0-4.8); ALT/SGPT 80 U/L (7-56); AST/SGOT 45 U/L (17-59); BLOOD UREA NITROGEN 5 mg/dL (7-21); CALCIUM 9.1 mg/dL (8.4-10.5); GFR NON-AFRICAN AMERICAN > 60
--- NOTE | 2018-12-13 08:27 | CP.PCM.PN ---
<To Chambers - Last Filed: 12/13/18 08:23> Subjective - Date & Time of Evaluation Date of Evaluation: 12/13/18 Time of Evaluation: 08:23 - Subjective Subjective: Surgery Progress note- Dr. Peacock Patient seen and examined at bedside. feeling better than yesterday. tolerating CLD. denies nausea, vomiting. + OOB and ambulating. - fevers, chills, chest pain, shortness of breath. Objective - Vital Signs/Intake and Output Vital Signs (last 24 hours): Temp Pulse Resp BP Pulse Ox 99.5 F 68 18 118/72 98 12/12/18 21:42 12/12/18 21:42 12/12/18 21:42 12/12/18 21:42 12/12/18 21:42 Intake and Output: 12/13/18 12/13/18 06:59 18:59 Intake Total 3960 Output Total 300 Balance 3660 - Medications Medications: Current Medications Acetaminophen (Tylenol 325mg Tab) 650 mg PO Q6H PRN PRN Reason: Pain, Mild (1-3) Last Admin: 12/12/18 17:11 Dose: 650 mg Diphenhydramine HCl (Benadryl) 25 mg PO HS PRN PRN Reason: Insomnia Last Admin: 12/12/18 21:36 Dose: 25 mg Enoxaparin Sodium (Lovenox) 40 mg SC DAILY [facility]; Protocol Last Admin: 12/12/18 09:55 Dose: 40 mg Lactated Ringer's (Lactated Ringer's) 1,000 mls @ 150 mls/hr IV .Q6H40M [facility] Last Admin: 12/12/18 19:57 Dose: 150 mls/hr Morphine Sulfate (Morphine) 1 mg IVP Q4H PRN PRN Reason: Pain, severe (8-10) Last Admin: 12/13/18 02:01 Dose: 1 mg Ondansetron HCl (Zofran Inj) 4 mg IVP Q6H PRN PRN Reason: Nausea/Vomiting Last Admin: 12/11/18 22:19 Dose: 4 mg Pantoprazole Sodium (Protonix Inj) 40 mg IVP DAILY [facility] Last Admin: 12/12/18 09:55 Dose: 40 mg - Labs Labs: 12/13/18 06:30 12/13/18 06:30 - Constitutional Appears: Non-toxic, No Acute Distress - Head Exam Head Exam: ATRAUMATIC - Eye Exam Eye Exam: EOMI. absent: Scleral icterus - ENT Exam ENT Exam: Mucous Membranes Moist - Respiratory Exam Respiratory Exam: NORMAL BREATHING PATTERN. absent: Accessory Muscle Use, Resp iratory Distress - Cardiovascular Exam Cardiovascular Exam: absent: Bradycardia, Tachycardia - GI/Abdominal Exam GI & Abdominal Exam: Soft. absent: Distended, Firm, Guarding, Rigid, Tenderness - Extremities Exam Extremities Exam: absent: Calf Tenderness - Neurological Exam Neurological Exam: Alert, Awake, Oriented x3 - Psychiatric Exam Psychiatric exam: Normal Affect - Skin Skin Exam: Intact, Warm Assessment and Plan - Assessment and Plan (Free Text) Assessment: 38M w/ pancreatitis 2/2 gallstone vs ETOH vs CF Plan: - CLD; diet as tolerated - f/u AM labs - Trend lipase & liver enzymes - pain control PRN - encourage OOB and ambulation - serial abd exams - Will continue to monitor to determine surgical intervention - c/s Gastroenterology; all recs appreciated - discussed w/ Dr. Peacock surgical attending PGY2 <Sage Peacock - Last Filed: 12/16/18 19:43> Objective - Vital Signs/Intake and Output Vital Signs (last 24 hours): Temp Pulse Resp BP Pulse Ox 97.1 F L 55 L 22 111/76 95 12/15/18 14:00 12/15/18 14:00 12/15/18 14:00 12/15/18 14:00 12/15/18 14:00 - Labs Labs: 12/15/18 05:30 12/15/18 05:30 PT 13.5 SECONDS (9.4-12.5) H 12/13/18 20:10 INR 1.18 12/13/18 20:10 APTT 30.7 Seconds (25.1-36.5) 12/13/18 20:10 Attending/Attestation - Attestation I have personally seen and examined this patient.: Yes I have fully participated in the care of the patient.: Yes I have reviewed all pertinent clinical information, including history, physical exam and plan: Yes Notes (Text): Pt was seen and examined at bedside Agree with above note and assessment Pt is improving clinically Lipase is still high repeat labs liquid diet Plan d.w pt in detail
[2018-12-13] MEDS: Enoxaparin 40 mg Syringe SC SCH (10:22)
[2018-12-13] MEDS ORDERED: Morphine 2 mg/ml ISec IVP PRN (13:18)
--- NOTE | 2018-12-13 16:59 | CP.PCM.PN ---
<Nate Tolentino - Last Filed: 12/13/18 16:55> Subjective - Date & Time of Evaluation Date of Evaluation: 12/13/18 Time of Evaluation: 08:00 - Subjective Subjective: Nate Tolentino PGY1 Medicine Progress Note for Dr. Felton Patient seen and examined at bedside this morning. No overnight events. Tolerating his diet okay. Will advance today. Vital signs are stable. Improved abdominal pain. No n/v/d, fevers, chills, numbness/tingling of ext. A full 12 point ROS was conducted and unremarkable except as stated above. Objective - Vital Signs/Intake and Output Vital Signs (last 24 hours): Temp Pulse Resp BP Pulse Ox 99.1 F 72 18 109/68 95 12/13/18 14:00 12/13/18 14:00 12/13/18 14:00 12/13/18 14:00 12/13/18 14:00 Intake and Output: 12/13/18 12/13/18 06:59 18:59 Intake Total 3960 Output Total 300 Balance 3660 - Medications Medications: Current Medications Acetaminophen (Tylenol 325mg Tab) 650 mg PO Q6H PRN PRN Reason: Pain, Mild (1-3) Last Admin: 12/12/18 17:11 Dose: 650 mg Diphenhydramine HCl (Benadryl) 25 mg PO HS PRN PRN Reason: Insomnia Last Admin: 12/12/18 21:36 Dose: 25 mg Enoxaparin Sodium (Lovenox) 40 mg SC DAILY HOA; Protocol Last Admin: 12/13/18 10:22 Dose: 40 mg Morphine Sulfate (Morphine) 1 mg IVP Q6H PRN PRN Reason: Pain, severe (8-10) Ondansetron HCl (Zofran Inj) 4 mg IVP Q6H PRN PRN Reason: Nausea/Vomiting Last Admin: 12/11/18 22:19 Dose: 4 mg Pantoprazole Sodium (Protonix Inj) 40 mg IVP DAILY HOA Last Admin: 12/13/18 09:38 Dose: 40 mg - Labs Labs: 12/13/18 06:30 12/13/18 06:30 - Head Exam Head Exam: ATRAUMATIC, NORMAL INSPECTION, NORMOCEPHALIC - Eye Exam Eye Exam: EOMI - ENT Exam ENT Exam: Mucous Membranes Moist - Neck Exam Neck Exam: Full ROM - Respiratory Exam Respiratory Exam: Clear to Ausculation Bilateral, NORMAL BREATHING PATTERN. absent: Rales, Rhonchi, Wheezes, Respiratory Distress - Cardiovascular Exam Cardiovascular Exam: REGULAR RHYTHM, +S1, +S2. absent: Murmur - GI/Abdominal Exam GI & Abdominal Exam: Soft. absent: Guarding, Rigid, Tenderness, Diminished Bowel Sounds, Hypoactive Bowel Sounds, Organomegaly - Extremities Exam Extremities Exam: Full ROM, Normal Capillary Refill, Normal Inspection. absent: Joint Swelling, Pedal Edema - Back Exam Back Exam: Full ROM, NORMAL INSPECTION - Neurological Exam Neurological Exam: Alert, Awake, Oriented x3 - Psychiatric Exam Psychiatric exam: Normal Affect, Normal Mood - Skin Skin Exam: Dry, Intact, Normal Color, Warm Assessment and Plan - Assessment and Plan (Free Text) Assessment: Patient is a 38 y/o M with past PMHx of Cystic Fibrosis who presented to [facility] [place] with severe mid-epigastric abdominal pain with radiation to the back. Lipase was significantly elevated and Abdominal CT showed acute pancreatitis. Patient also found to have cholelithiasis on abdominal US. Patient is admitted for acute pancreatitis 2/2 cholelithiasis. Plan: Acute pancreatitis Likely 2/2 Cholelithiasis - As per surgery, patient will go for cholecystectomy tentatively tomorrow. - c/w Morphine for pain control; taper down - NPO past midnight - Tolerating liquid diet; advance to D soft - d/c IVF - Abdominal US (12/11): evidence of cholelithiasis. No signs of acute cholecystitis or choledocholithiasis. - CT abdomen/Pelvis (12/10): consistent with acute pancreatitis. - Patient has Hx of cystic fibrosis and alcohol abuse, which may also be potential cause of acute pancreatitis - c/w Zofran PRN for nausea/vomiting - GI is on consult. Transaminitis 2/2 Pancreatitis - downtrending - AST/ALT downtrending; currently AST/ALT 80/151 - Hepatitis panel is negative Leukocytosis likely 2/2 Pancreatitis - improved - WBC is 7.9 - Afebrile GI ppx: protonix 40 mg daily DVT ppx: lovenox 40 mg daily Dispo: will continue to monitor patient on the floor. As per surgery, plan is cholecystectomy tomorrow. NPO past midnight. Case was discussed and reviewed with Attending Physician, Dr. Felton <Cody Felton - Last Filed: 12/13/18 18:44> Objective - Vital Signs/Intake and Output Vital Signs (last 24 hours): Temp Pulse Resp BP Pulse Ox 99.1 F 72 18 109/68 95 12/13/18 14:00 12/13/18 14:00 12/13/18 14:00 12/13/18 14:00 12/13/18 14:00 Intake and Output: 12/13/18 12/13/18 06:59 18:59 Intake Total 3960 Output Total 300 Balance 3660 - Medications Medications: Current Medications Acetaminophen (Tylenol 325mg Tab) 650 mg PO Q6H PRN PRN Reason: Pain, Mild (1-3) Last Admin: 12/12/18 17:11 Dose: 650 mg Diphenhydramine HCl (Benadryl) 25 mg PO HS PRN PRN Reason: Insomnia Last Admin: 12/12/18 21:36 Dose: 25 mg Enoxaparin Sodium (Lovenox) 40 mg SC DAILY HOA; Protocol Last Admin: 12/13/18 10:22 Dose: 40 mg Morphine Sulfate (Morphine) 1 mg IVP Q6H PRN PRN Reason: Pain, severe (8-10) Ondansetron HCl (Zofran Inj) 4 mg IVP Q6H PRN PRN Reason: Nausea/Vomiting Last Admin: 12/11/18 22:19 Dose: 4 mg Pantoprazole Sodium (Protonix Inj) 40 mg IVP DAILY HOA Last Admin: 12/13/18 09:38 Dose: 40 mg - Labs Labs: 12/13/18 06:30 12/13/18 06:30 Attending/Attestation - Attestation I have personally seen and examined this patient.: Yes I have fully participated in the care of the patient.: Yes I have reviewed all pertinent clinical information, including history, physical exam and plan: Yes Notes (Text): 12/13/18 18:42 38 year old male with past medical history of cystic fibrosis who presented with epigastric pain found to have pancreatitis secondary to alcohol vs gallstones as seen on ultrasound. Continue with slow diet advancement as tolerated. GI and surgery are following. Plan for possible cholecystectomy later this week. LFTs are improving; will continue to monitor. Hepatitis panel was negative. Patient was counselled on alcohol abstinence. Cody Felton MD Hospitalist.
--- NOTE | 2018-12-13 19:20 | PN ---
DATE: 12/13/2018 SUBJECTIVE: The patient is lying in bed, comfortable. His abdominal pain has markedly subsided. He is tolerating solid foods. PHYSICAL EXAMINATION VITAL SIGNS: Reveal a temperature of 98.3, blood pressure 106/61, heart rate 68. HEENT: Reveals sclerae to be white, conjunctivae pink. NECK: Supple. CHEST: Lungs are clear. HEART: Reveals regular rate and rhythm. ABDOMEN: Soft, nontender. No mass. EXTREMITIES: Show no edema. LABORATORY DATA: Reveal hemoglobin 13.7, white blood cell count 7.9. Chemistries reveal AST 45, ALT 80, alkaline phosphatase 151. Serum lipase down to 3016 from 10,580. IMPRESSION: Acute pancreatitis in a patient with a history of cystic fibrosis and gallstones. RECOMMENDATIONS: 1. The patient needs cholecystectomy. 2. He is stable from a GI standpoint at this time. Kp Banks MD
[2018-12-13 21:13] LABS: INR 1.18; PARTIAL THROMBOPLASTIN TIME 30.7 Seconds (25.1-36.5); PROTHROMBIN TIME 13.5 SECONDS (9.4-12.5)
[2018-12-13 23:08] LABS: PH,URINE 8.5 (4.7-8.0); URINE BILIRUBIN NEGATIVE (NEGATIVE); URINE BLOOD NEGATIVE (NEGATIVE); URINE GLUCOSE (UA) NEGATIVE (NEGATIVE); URINE LEUKOCYTE ESTERASE NEGATIVE Leu/uL (NEGATIVE); URINE PROTEIN NEGATIVE mg/dL (<30 mg/dL)
[2018-12-13 23:11] LABS: URINE APPEARANCE CLEAR (CLEAR); URINE COLOR YELLOW (YELLOW)
[2018-12-14 06:39] LABS: BASO # 0.02 K/mm3 (0.0-2.0); BASO % 0.2 % (0.0-3.0); EOS # 0.7 (0.0-0.7); EOS % 8.3 % (1.5-5.0); GRAN # 5.5 (1.4-6.5); GRAN % 63.4 % (50.0-68.0); HEMOGLOBIN 14.5 g/dL (14.0-18.0); LYMPH # 1.3 (1.2-3.4); LYMPH % 14.8 % (22.0-35.0); MEAN CELL VOLUME 91.1 fl (80.0-105.0); MEAN CORPUSCULAR HEMOGLOBIN 30.1 pg (25.0-35.0); MEAN CORPUSCULAR HGB CONC 33.1 g/dl (31.0-37.0); MEAN PLATELET VOLUME 10.3 fl (7.0-11.0); MONO # 1.2 (0.1-0.6); MONO % 13.3 % (1.0-6.0); RBC 4.81 10^6/uL (3.5-6.1); RED CELL DISTRIBUTION WIDTH 13.2 % (11.5-14.5); WHITE BLOOD COUNT 8.7 10^3/uL (4.5-11.0)
[2018-12-14 07:06] LABS: ALB/GLOB RATIO 1.2 (1.1-1.8); ALBUMIN 4.1 g/dL (3.0-4.8); ALT/SGPT 86 U/L (7-56); AST/SGOT 66 U/L (17-59); BLOOD UREA NITROGEN 8 mg/dL (7-21); CALCIUM 9.7 mg/dL (8.4-10.5); GFR NON-AFRICAN AMERICAN > 60
[2018-12-14] MEDS: Enoxaparin 40 mg Syringe SC SCH (11:00)
--- NOTE | 2018-12-14 15:28 | PN ---
DATE: 12/14/2018 SUBJECTIVE: The patient is lying in bed, abdominal pain is less. He is tolerating solid foods. He denies any nausea or vomiting. OBJECTIVE: VITAL SIGNS: Reveal temperature of 98.2, blood pressure 103/69, heart rate 63. HEENT: Reveal sclerae to be white. Conjunctivae pink. NECK: Supple. CHEST: Lungs are clear. HEART: Reveals regular rate and rhythm. ABDOMEN: Soft, mild epigastric tenderness. No rebound or guarding. EXTREMITIES: Show no edema. LABORATORY DATA: Reveal white blood cell count 8.7, hemoglobin 14.5. AST 66, ALT 86, alkaline phosphatase of 185. IMPRESSION AND PLAN: A 38-year-old male with a history of cystic fibrosis admitted with acute pancreatitis. He was found to have gallstones. Recommendations are the patient is to have laparoscopic cholecystectomy. Kp Banks MD
--- NOTE | 2018-12-14 16:23 | CP.PCM.PN ---
<Nate Tolentino - Last Filed: 12/14/18 16:20> Subjective - Date & Time of Evaluation Date of Evaluation: 12/14/18 Time of Evaluation: 08:00 - Subjective Subjective: Nate Tolentino PGY1 Medicine Progress Note for Dr. Felton Patient was seen and examined at bedside this morning. Vital signs are stable. No adverse overnight events. His abdominal pain is improving. He rates abdominal pain as 4/10. Denies nausea, vomiting, diarrhea. A full 12 point ROS was conducted and unremarkable except as stated above. Objective - Vital Signs/Intake and Output Vital Signs (last 24 hours): Temp Pulse Resp BP Pulse Ox 98.2 F 74 20 105/76 97 12/14/18 14:00 12/14/18 14:00 12/14/18 14:00 12/14/18 14:00 12/14/18 14:00 Intake and Output: 12/14/18 12/14/18 06:59 18:59 Intake Total 4840 Balance 4840 - Medications Medications: Current Medications Acetaminophen (Tylenol 325mg Tab) 650 mg PO Q6H PRN PRN Reason: Pain, Mild (1-3) Last Admin: 12/13/18 21:10 Dose: 650 mg Diphenhydramine HCl (Benadryl) 25 mg PO HS PRN PRN Reason: Insomnia Last Admin: 12/13/18 21:10 Dose: 25 mg Lactated Ringer's (Lactated Ringer's) 1,000 mls @ 100 mls/hr IV .Q10H HOA Morphine Sulfate (Morphine) 1 mg IVP Q6H PRN PRN Reason: Pain, severe (8-10) Last Admin: 12/13/18 22:52 Dose: 1 mg Ondansetron HCl (Zofran Inj) 4 mg IVP Q6H PRN PRN Reason: Nausea/Vomiting Last Admin: 12/11/18 22:19 Dose: 4 mg Pantoprazole Sodium (Protonix Inj) 40 mg IVP DAILY HOA Last Admin: 12/14/18 10:13 Dose: 40 mg - Labs Labs: 12/14/18 06:10 12/14/18 06:10 PT 13.5 SECONDS (9.4-12.5) H 12/13/18 20:10 INR 1.18 12/13/18 20:10 APTT 30.7 Seconds (25.1-36.5) 12/13/18 20:10 - Constitutional Appears: No Acute Distress - Head Exam Head Exam: ATRAUMATIC, NORMAL INSPECTION, NORMOCEPHALIC - Eye Exam Eye Exam: EOMI, Normal appearance, PERRL - ENT Exam ENT Exam: Mucous Membranes Moist, Normal Exam - Neck Exam Neck Exam: Full ROM, Normal Inspection. absent: Lymphadenopathy - Respiratory Exam Respiratory Exam: Clear to Ausculation Bilateral, NORMAL BREATHING PATTERN. absent: Rales, Rhonchi, Wheezes - Cardiovascular Exam Cardiovascular Exam: REGULAR RHYTHM, +S1, +S2. absent: Murmur - GI/Abdominal Exam GI & Abdominal Exam: Soft, Tenderness (Mild tenderness to palpation of epigastric region ), Normal Bowel Sounds - Extremities Exam Extremities Exam: Full ROM, Normal Capillary Refill, Normal Inspection. absent: Joint Swelling, Pedal Edema - Back Exam Back Exam: NORMAL INSPECTION - Neurological Exam Neurological Exam: Alert, Awake, CN II-XII Intact, Normal Gait, Oriented x3 - Psychiatric Exam Psychiatric exam: Normal Affect, Normal Mood - Skin Skin Exam: Dry, Intact, Normal Color, Warm Assessment and Plan - Assessment and Plan (Free Text) Assessment: Patient is a 38 y/o M with past PMHx of Cystic Fibrosis who presented to [facility] [place] with severe mid-epigastric abdominal pain with radiation to the back. Lipase was significantly elevated and Abdominal CT showed acute pancreatitis. Patient also found to have cholelithiasis on abdominal US. Patient is admitted for acute pancreatitis 2/2 cholelithiasis vs EtOH use. Plan: Acute pancreatitis 2/2 Cholelithiasis vs EtOH use - As per surgery, patient's lipase is trending mildly upwards (~ 3000 to 4000), patient will be re-scheduled for cholecystectomy on Wednesday, 12/16. - c/w morphine for pain control - Placed back on liquid diet since patient was NPO after midnight, however, surgery is pushed back - LR at 100 cc/hr - c/w Zofran prn - Surgery is on consult. Recs appreciated. - GI is on consult. Recs were for lap naun. - Hx of cystic fibrosis and EtOH abuse - Abdominal US (12/11): evidence of cholelithiasis. No signs of acute cholecystitis or choledocholithiasis. - CT abdomen/Pelvis (12/10): consistent with acute pancreatitis. Transaminitis - AST/ALT 86/185 - Hepatitis panel is negative Leukocytosis likely 2/2 Pancreatitis - resolved - WBC 8.7 - Afebrile GI ppx: protonix 40 mg daily Dispo: will continue to monitor patient on the floor. Due to uptrending lipase, patient's cholecystectomy will be pushed back to Wednesday, 12/16. Case was discussed and reviewed with Attending Physician, Dr. Felton <Cody Felton - Last Filed: 12/14/18 17:44> Objective - Vital Signs/Intake and Output Vital Signs (last 24 hours): Temp Pulse Resp BP Pulse Ox 98.2 F 74 20 105/76 97 12/14/18 14:00 12/14/18 14:00 12/14/18 14:00 12/14/18 14:00 12/14/18 14:00 Intake and Output: 12/14/18 12/14/18 06:59 18:59 Intake Total 4840 Balance 4840 - Medications Medications: Current Medications Acetaminophen (Tylenol 325mg Tab) 650 mg PO Q6H PRN PRN Reason: Pain, Mild (1-3) Last Admin: 12/13/18 21:10 Dose: 650 mg Diphenhydramine HCl (Benadryl) 25 mg PO HS PRN PRN Reason: Insomnia Last Admin: 12/13/18 21:10 Dose: 25 mg Lactated Ringer's (Lactated Ringer's) 1,000 mls @ 100 mls/hr IV .Q10H HOA Morphine Sulfate (Morphine) 1 mg IVP Q6H PRN PRN Reason: Pain, severe (8-10) Last Admin: 12/13/18 22:52 Dose: 1 mg Ondansetron HCl (Zofran Inj) 4 mg IVP Q6H PRN PRN Reason: Nausea/Vomiting Last Admin: 12/11/18 22:19 Dose: 4 mg Pantoprazole Sodium (Protonix Inj) 40 mg IVP DAILY HOA Last Admin: 12/14/18 10:13 Dose: 40 mg - Labs Labs: 12/14/18 06:10 12/14/18 06:10 PT 13.5 SECONDS (9.4-12.5) H 12/13/18 20:10 INR 1.18 12/13/18 20:10 APTT 30.7 Seconds (25.1-36.5) 12/13/18 20:10 Attending/Attestation - Attestation I have personally seen and examined this patient.: Yes I have fully participated in the care of the patient.: Yes I have reviewed all pertinent clinical information, including history, physical exam and plan: Yes Notes (Text): 12/14/18 17:42 38 year old male with past medical history of cystic fibrosis who presented with epigastric pain found to have pancreatitis secondary to alcohol vs gallstones as seen on ultrasound. GI and surgery are following. Plan for cholecystectomy was for today but postponed now until Wednesday as per surgery due to elevated lipase, although patient's symptoms are improving. Continue with liquid diet as tolerated. Continue with IVF. Continue to monitor LFTs. Hepatitis panel was negative. Patient was counselled on alcohol abstinence. Cody Felton MD Hospitalist.
[2018-12-14] MEDS: Lactated Ringer's 1,000 ML IV SCH ×2 (18:18→21:13)
[2018-12-15 06:52] LABS: BASO # 0.04 K/mm3 (0.0-2.0); BASO % 0.6 % (0.0-3.0); EOS # 0.6 (0.0-0.7); EOS % 9.2 % (1.5-5.0); GRAN # 3.97 (1.4-6.5); HEMOGLOBIN 13.8 g/dL (14.0-18.0); LYMPH # 1.5 (1.2-3.4); LYMPH % 21.8 % (22.0-35.0); MEAN CELL VOLUME 90.6 fl (80.0-105.0); MEAN CORPUSCULAR HEMOGLOBIN 30.2 pg (25.0-35.0); MEAN CORPUSCULAR HGB CONC 33.3 g/dl (31.0-37.0); MEAN PLATELET VOLUME 9.9 fl (7.0-11.0); MONO # 0.7 (0.1-0.6); MONO % 10.4 % (1.0-6.0); RBC 4.57 10^6/uL (3.5-6.1); RED CELL DISTRIBUTION WIDTH 13.1 % (11.5-14.5); WHITE BLOOD COUNT 6.8 10^3/uL (4.5-11.0)
[2018-12-15 07:15] LABS: ALB/GLOB RATIO 1.2 (1.1-1.8); ALBUMIN 3.6 g/dL (3.0-4.8); ALT/SGPT 76 U/L (7-56); AST/SGOT 54 U/L (17-59); BLOOD UREA NITROGEN 7 mg/dL (7-21); CALCIUM 9.3 mg/dL (8.4-10.5); GFR NON-AFRICAN AMERICAN > 60
--- NOTE | 2018-12-15 07:35 | CP.PCM.PN ---
<Manuel Moses - Last Filed: 12/15/18 07:33> Subjective - Date & Time of Evaluation Date of Evaluation: 12/15/18 Time of Evaluation: 07:33 - Subjective Subjective: Surgery Pt seen and examined. No acute events. Surgery cancelled yesterday because of elevated lipase. Denies fever, nausea, pain. Objective - Vital Signs/Intake and Output Vital Signs (last 24 hours): Temp Pulse Resp BP Pulse Ox 98 F 65 18 123/74 98 12/14/18 22:00 12/14/18 22:00 12/14/18 22:00 12/14/18 22:00 12/14/18 22:00 - Medications Medications: Current Medications Acetaminophen (Tylenol 325mg Tab) 650 mg PO Q6H PRN PRN Reason: Pain, Mild (1-3) Last Admin: 12/13/18 21:10 Dose: 650 mg Diphenhydramine HCl (Benadryl) 25 mg PO HS PRN PRN Reason: Insomnia Last Admin: 12/15/18 00:18 Dose: 25 mg Lactated Ringer's (Lactated Ringer's) 1,000 mls @ 100 mls/hr IV .Q10H HOA Last Admin: 12/14/18 21:13 Dose: 100 mls/hr Morphine Sulfate (Morphine) 1 mg IVP Q6H PRN PRN Reason: Pain, severe (8-10) Last Admin: 12/13/18 22:52 Dose: 1 mg Ondansetron HCl (Zofran Inj) 4 mg IVP Q6H PRN PRN Reason: Nausea/Vomiting Last Admin: 12/11/18 22:19 Dose: 4 mg Pantoprazole Sodium (Protonix Inj) 40 mg IVP DAILY HOA Last Admin: 12/14/18 10:13 Dose: 40 mg - Labs Labs: 12/14/18 06:10 12/15/18 05:30 PT 13.5 SECONDS (9.4-12.5) H 12/13/18 20:10 INR 1.18 12/13/18 20:10 APTT 30.7 Seconds (25.1-36.5) 12/13/18 20:10 - Constitutional Appears: Well - Head Exam Head Exam: ATRAUMATIC, NORMAL INSPECTION, NORMOCEPHALIC - Eye Exam Eye Exam: EOMI, Normal appearance, PERRL Pupil Exam: NORMAL ACCOMODATION, PERRL - ENT Exam ENT Exam: Mucous Membranes Moist, Normal Exam - Neck Exam Neck Exam: Full ROM, Normal Inspection. absent: Lymphadenopathy - Respiratory Exam Respiratory Exam: Clear to Ausculation Bilateral, NORMAL BREATHING PATTERN - Cardiovascular Exam Cardiovascular Exam: REGULAR RHYTHM - GI/Abdominal Exam GI & Abdominal Exam: Soft, Normal Bowel Sounds. absent: Tenderness, Rebound - Extremities Exam Extremities Exam: Full ROM, Normal Capillary Refill, Normal Inspection. absent: Joint Swelling, Pedal Edema - Back Exam Back Exam: NORMAL INSPECTION - Neurological Exam Neurological Exam: Alert, Awake, CN II-XII Intact, Normal Gait, Oriented x3 - Psychiatric Exam Psychiatric exam: Normal Affect, Normal Mood - Skin Skin Exam: Dry, Intact, Normal Color, Warm Assessment and Plan - Assessment and Plan (Free Text) Assessment: 38M w/ pancreatitis 2/2 gallstone vs ETOH vs CF Plan: - CLD; diet as tolerated - f/u AM labs - Trend lipase & liver enzymes - pain control PRN - encourage OOB and ambulation - serial abd exams - Will continue to monitor to determine surgical intervention - c/s Gastroenterology; all recs appreciated - Will discuss w/ Dr. Peacock surgical attending <Sage Peacock - Last Filed: 12/16/18 19:45> Objective - Vital Signs/Intake and Output Vital Signs (last 24 hours): Temp Pulse Resp BP Pulse Ox 97.1 F L 55 L 22 111/76 95 12/15/18 14:00 12/15/18 14:00 12/15/18 14:00 12/15/18 14:00 12/15/18 14:00 - Labs Labs: 12/15/18 05:30 12/15/18 05:30 PT 13.5 SECONDS (9.4-12.5) H 12/13/18 20:10 INR 1.18 12/13/18 20:10 APTT 30.7 Seconds (25.1-36.5) 12/13/18 20:10 Attending/Attestation - Attestation I have personally seen and examined this patient.: Yes I have fully participated in the care of the patient.: Yes I have reviewed all pertinent clinical information, including history, physical exam and plan: Yes Notes (Text): Pt was seen and examined at bedside Agree with above note and assessment Pt is improved clinically Lipase is mildly elevated Can be DC home Lap Cholecystectomy as out pt f.u as out pt Plan d.w pt in detail Risk and benefit explained in detail.
[2018-12-15 08:17] VITALS: RESP 22
[2018-12-15 09:39] LABS: LIPASE 4096 U/L (23-300)
--- NOTE | 2018-12-15 10:46 | PN ---
DATE: 12/15/2018 SUBJECTIVE: This patient is sitting up in bed. He feels much better. He denies any abdominal pain, nausea, vomiting. OBJECTIVE: VITAL SIGNS: Reveal temperature of 98.8, blood pressure 100/70, heart rate of 63. HEENT: Reveal sclerae to be white. Conjunctivae pink. NECK: Supple. CHEST: Reveal lungs to be clear. HEART: Reveals regular rate and rhythm. ABDOMEN: Soft, nontender. No mass. EXTREMITIES: Show no edema. LABORATORY DATA: Reveal AST down to 54, ALT 76, alkaline phosphatase 163, total bilirubin of 0.5. Serum lipase of 4096. IMPRESSION: Acute pancreatitis in this 38-year-old male with a history of cystic fibrosis and gallstones. His pancreatitis clinically is improving. His lipase remains elevated at 4096. RECOMMENDATIONS: The patient will need laparoscopic cholecystectomy once his pancreatitis cools down. Clinically his pancreatitis is improving. Kp Banks MD
--- NOTE | 2018-12-15 12:41 | CP.PCM.PN ---
Subjective - Date & Time of Evaluation Date of Evaluation: 12/15/18 Time of Evaluation: 12:41 Objective - Vital Signs/Intake and Output Vital Signs (last 24 hours): Temp Pulse Resp BP Pulse Ox 98.8 F 63 22 100/70 99 12/15/18 06:00 12/15/18 06:00 12/15/18 06:00 12/15/18 06:00 12/15/18 06:00 - Medications Medications: Current Medications Acetaminophen (Tylenol 325mg Tab) 650 mg PO Q6H PRN PRN Reason: Pain, Mild (1-3) Last Admin: 12/13/18 21:10 Dose: 650 mg Diphenhydramine HCl (Benadryl) 25 mg PO HS PRN PRN Reason: Insomnia Last Admin: 12/15/18 00:18 Dose: 25 mg Lactated Ringer's (Lactated Ringer's) 1,000 mls @ 100 mls/hr IV .Q10H HOA Last Admin: 12/14/18 21:13 Dose: 100 mls/hr Morphine Sulfate (Morphine) 1 mg IVP Q6H PRN PRN Reason: Pain, severe (8-10) Last Admin: 12/13/18 22:52 Dose: 1 mg Ondansetron HCl (Zofran Inj) 4 mg IVP Q6H PRN PRN Reason: Nausea/Vomiting Last Admin: 12/11/18 22:19 Dose: 4 mg Pantoprazole Sodium (Protonix Inj) 40 mg IVP DAILY [facility] Last Admin: 12/15/18 09:56 Dose: 40 mg - Labs Labs: 12/15/18 05:30 12/15/18 05:30 PT 13.5 SECONDS (9.4-12.5) H 12/13/18 20:10 INR 1.18 12/13/18 20:10 APTT 30.7 Seconds (25.1-36.5) 12/13/18 20:10
[2018-12-15 14:55] VITALS: BP 111/76; PULSE 55; TEMP 97.1; O2SAT 95
--- NOTE | 2018-12-15 18:45 | CP.PCM.DIS ---
<Marcelina Infante - Last Filed: 12/15/18 18:40> Provider - Provider Date of Admission: 12/11/18 18:14 Attending physician: Cody Felton MD Primary care physician: NO PRIMARY CARE PROVIDER Consults: 12/10/18 23:31 Gastroenterology Consult Stat Comment: Consulting Provider: Kp Banks Consulting Physician: Kp Banks Reason for Consult: Pancreatitis with history of Cystic Fibrosis 12/12/18 11:03 Physician Consult Routine Comment: Consulting Provider: Sage Peacock Consulting Physician: Sage Peacock Reason for Consult: cholelithiasis on U/S w/ associated acute pancreatitis Time Spent in preparation of Discharge (in minutes): 55 Diagnosis - Discharge Diagnosis (1) Acute pancreatitis Status: Acute Hospital Course - Lab Results Lab Results: Most Recent Lab Values WBC 6.8 10^3/uL (4.5-11.0) D 12/15/18 05:30 RBC 4.57 10^6/uL (3.5-6.1) 12/15/18 05:30 Hgb 13.8 g/dL (14.0-18.0) L 12/15/18 05:30 Hct 41.4 % (42.0-52.0) L 12/15/18 05:30 MCV 90.6 fl (80.0-105.0) 12/15/18 05:30 MCH 30.2 pg (25.0-35.0) 12/15/18 05:30 MCHC 33.3 g/dl (31.0-37.0) 12/15/18 05:30 RDW 13.1 % (11.5-14.5) 12/15/18 05:30 Plt Count 277 10^3/uL (120.0-450.0) 12/15/18 05:30 MPV 9.9 fl (7.0-11.0) 12/15/18 05:30 Gran % 58.0 % (50.0-68.0) 12/15/18 05:30 Lymph % (Auto) 21.8 % (22.0-35.0) L 12/15/18 05:30 Haakon % (Auto) 10.4 % (1.0-6.0) H 12/15/18 05:30 Eos % (Auto) 9.2 % (1.5-5.0) H 12/15/18 05:30 Baso % (Auto) 0.6 % (0.0-3.0) 12/15/18 05:30 Gran # 3.97 (1.4-6.5) 12/15/18 05:30 Lymph # (Auto) 1.5 (1.2-3.4) 12/15/18 05:30 Haakon # (Auto) 0.7 (0.1-0.6) H 12/15/18 05:30 Eos # (Auto) 0.6 (0.0-0.7) 12/15/18 05:30 Baso # (Auto) 0.04 K/mm3 (0.0-2.0) 12/15/18 05:30 Neutrophils % (Manual) 89 % (50.0-70.0) H 12/10/18 20:30 Band Neutrophils % 2 % (0-2) 12/10/18 20:30 Lymphocytes % (Manual) 4 % (22.0-35.0) L 12/10/18 20:30 Atypical Lymphs % 3 % (0.0-0.0) H 12/10/18 20:30 Monocytes % (Manual) 2 % (1.0-6.0) 12/10/18 20:30 PT 13.5 SECONDS (9.4-12.5) H 12/13/18 20:10 INR 1.18 12/13/18 20:10 APTT 30.7 Seconds (25.1-36.5) 12/13/18 20:10 Sodium 140 mmol/L (132-148) 12/15/18 05:30 Potassium 3.7 mmol/L (3.6-5.0) 12/15/18 05:30 Chloride 107 mmol/L (98-107) 12/15/18 05:30 Carbon Dioxide 28 mmol/L (21-33) 12/15/18 05:30 Anion Gap 9 (10-20) L 12/15/18 05:30 BUN 7 mg/dL (7-21) 12/15/18 05:30 Creatinine 0.7 mg/dl (0.8-1.5) L 12/15/18 05:30 Est GFR ( Amer) > 60 12/15/18 05:30 Est GFR (Non-Af Amer) > 60 12/15/18 05:30 Random Glucose 87 mg/dL (70-110) 12/15/18 05:30 Calcium 9.3 mg/dL (8.4-10.5) 12/15/18 05:30 Phosphorus 3.3 mg/dL (2.5-4.5) 12/11/18 06:00 Magnesium 1.9 mg/dL (1.7-2.2) 12/11/18 06:00 Total Bilirubin 0.5 mg/dL (0.2-1.3) 12/15/18 05:30 AST 54 U/L (17-59) 12/15/18 05:30 ALT 76 U/L (7-56) H 12/15/18 05:30 Alkaline Phosphatase 163 U/L (38-126) H 12/15/18 05:30 Total Protein 6.6 g/dL (5.8-8.3) 12/15/18 05:30 Albumin 3.6 g/dL (3.0-4.8) 12/15/18 05:30 Globulin 3.0 gm/dL 12/15/18 05:30 Albumin/Globulin Ratio 1.2 (1.1-1.8) 12/15/18 05:30 Triglycerides 55 mg/dL (35-160) 12/10/18 22:03 Cholesterol 160 mg/dL (130-200) 12/10/18 22:03 LDL Cholesterol Direct 94 mg/dL (0-129) 12/10/18 22:03 HDL Cholesterol 50 mg/dL (29-60) 12/10/18 22:03 Lipase 4096 U/L (23-300) H 12/15/18 05:30 Urine Color Yellow (YELLOW) 12/13/18 22:53 Urine Appearance Clear (CLEAR) 12/13/18 22:53 Urine pH 8.5 (4.7-8.0) 12/13/18 22:53 Ur Specific [place] 1.015 (1.005-1.035) 12/13/18 22:53 Urine Protein Negative mg/dL (<30 mg/dL) 12/13/18 22:53 Urine Glucose (UA) Negative mg/dL (NEGATIVE) 12/13/18 22:53 Urine Ketones Negative mg/dL (NEGATIVE) 12/13/18 22:53 Urine Blood Negative (NEGATIVE) 12/13/18 22:53 Urine Nitrate Negative (NEGATIVE) 12/13/18 22:53 Urine Bilirubin Negative (NEGATIVE) 12/13/18 22:53 Urine Urobilinogen 1.0 E.U./dL (<1 E.U./dL) H 12/13/18 22:53 Ur Leukocyte Esterase Negative [place]/uL (NEGATIVE) 12/13/18 22:53 Alcohol, Quantitative < 10 mg/dL (0-10) 12/10/18 20:30 Hepatitis A IgM Ab Negative (NEGATIVE) 12/12/18 07:36 Hep Bs Antigen Negative (NEGATIVE) 12/12/18 07:36 Hep B Core IgM Ab Negative (NEGATIVE) 12/12/18 07:36 Hepatitis C Antibody Negative (NEGATIVE) 12/12/18 07:36 - Hospital Course Hospital Course: 38 year old male with past medical history of Cystic Fibrosis, presents with severe abdominal pain, found to have acute pancreatitis with elevated lipase and CAT abdomen findings. Abdominal US also revealed cholelithiasis. Patient was adequately hydrated, given pain control medication. Surgery was consulted, advanced diet as tolerated. Lipase was trended, it seems to be increasing. Surgery deemed an elective cholecystectomy outpatient. Today, patient is ambulating well, no abdominal tenderness upon palpation, tolerating diet well. Patient will follow up with Dr Peacock outpatient. It was recommended to him to follow a low fat diet, stop smoking and abstain from alcohol. Case seen and discussed with attending, Dr Felton. Discharge Exam - Head Exam Head Exam: ATRAUMATIC, NORMAL INSPECTION, NORMOCEPHALIC - Eye Exam Eye Exam: EOMI, PERRL. absent: Conjunctival injection, Nystagmus, Scleral icterus Pupil Exam: NORMAL ACCOMODATION, PERRL. absent: Miosis, Mydriatic - ENT Exam ENT Exam: Mucous Membranes Moist - Neck Exam Neck exam: Full Rom - Respiratory Exam Respiratory Exam: Clear to PA & Lateral, NORMAL BREATHING PATTERN. absent: Rales, Respiratory Distress - Cardiovascular Exam Cardiovascular Exam: RRR, +S1, +S2. absent: Systolic Murmur - GI/Abdominal Exam GI & Abdominal Exam: Normal Bowel Sounds, Soft. absent: Distended, Firm, Guarding, Organomegaly, Rebound, Rigid, Tenderness - Extremities Exam Extremities exam: normal inspection - Back Exam Back exam: NORMAL INSPECTION - Neurological Exam Neurological exam: Alert, Oriented x3 - Psychiatric Exam Psychiatric exam: Normal Affect, Normal Mood - Skin Skin Exam: Dry, Normal Color, Warm Discharge Plan - Follow Up Plan Condition: GOOD Disposition: HOME/ ROUTINE Instructions: Cholecystectomy (DC), Quitting Smoking, Pancreatitis (DC) Additional Instructions: Please follow up with your primary care doctor within 3-5 days of discharge. If you do not have one you can follow up with our [facility] at [facility] [place]. You will need to follow up with surgery, Dr. Peacock, within 1 week for outpatient elective surgery to remove the gallbladder. Recommend a soft, low fat diet. Recommend smoking cessation and abstain from alcohol use. If your symptoms return, please go to the nearest emergency department. Referrals: [facility] at [facility] [place] [Outside] Sage Peacock MD [Medical Doctor] - <Cody Felton - Last Filed: 12/16/18 09:16> Provider - Provider Date of Admission: 12/11/18 18:14 Attending physician: Cody Felton MD Primary care physician: NO PRIMARY CARE PROVIDER Consults: 12/10/18 23:31 Gastroenterology Consult Stat Comment: Consulting Provider: Kp Banks Consulting Physician: Kp Banks Reason for Consult: Pancreatitis with history of Cystic Fibrosis 12/12/18 11:03 Physician Consult Routine Comment: Consulting Provider: Sage Peacock Consulting Physician: Sage Peacock Reason for Consult: cholelithiasis on U/S w/ associated acute pancreatitis Hospital Course - Lab Results Lab Results: Most Recent Lab Values WBC 6.8 10^3/uL (4.5-11.0) D 12/15/18 05:30 RBC 4.57 10^6/uL (3.5-6.1) 12/15/18 05:30 Hgb 13.8 g/dL (14.0-18.0) L 12/15/18 05:30 Hct 41.4 % (42.0-52.0) L 12/15/18 05:30 MCV 90.6 fl (80.0-105.0) 12/15/18 05:30 MCH 30.2 pg (25.0-35.0) 12/15/18 05:30 MCHC 33.3 g/dl (31.0-37.0) 12/15/18 05:30 RDW 13.1 % (11.5-14.5) 12/15/18 05:30 Plt Count 277 10^3/uL (120.0-450.0) 12/15/18 05:30 MPV 9.9 fl (7.0-11.0) 12/15/18 05:30 Gran % 58.0 % (50.0-68.0) 12/15/18 05:30 Lymph % (Auto) 21.8 % (22.0-35.0) L 12/15/18 05:30 Haakon % (Auto) 10.4 % (1.0-6.0) H 12/15/18 05:30 Eos % (Auto) 9.2 % (1.5-5.0) H 12/15/18 05:30 Baso % (Auto) 0.6 % (0.0-3.0) 12/15/18 05:30 Gran # 3.97 (1.4-6.5) 12/15/18 05:30 Lymph # (Auto) 1.5 (1.2-3.4) 12/15/18 05:30 Haakon # (Auto) 0.7 (0.1-0.6) H 12/15/18 05:30 Eos # (Auto) 0.6 (0.0-0.7) 12/15/18 05:30 Baso # (Auto) 0.04 K/mm3 (0.0-2.0) 12/15/18 05:30 Neutrophils % (Manual) 89 % (50.0-70.0) H 12/10/18 20:30 Band Neutrophils % 2 % (0-2) 12/10/18 20:30 Lymphocytes % (Manual) 4 % (22.0-35.0) L 12/10/18 20:30 Atypical Lymphs % 3 % (0.0-0.0) H 12/10/18 20:30 Monocytes % (Manual) 2 % (1.0-6.0) 12/10/18 20:30 PT 13.5 SECONDS (9.4-12.5) H 12/13/18 20:10 INR 1.18 12/13/18 20:10 APTT 30.7 Seconds (25.1-36.5) 12/13/18 20:10 Sodium 140 mmol/L (132-148) 12/15/18 05:30 Potassium 3.7 mmol/L (3.6-5.0) 12/15/18 05:30 Chloride 107 mmol/L (98-107) 12/15/18 05:30 Carbon Dioxide 28 mmol/L (21-33) 12/15/18 05:30 Anion Gap 9 (10-20) L 12/15/18 05:30 BUN 7 mg/dL (7-21) 12/15/18 05:30 Creatinine 0.7 mg/dl (0.8-1.5) L 12/15/18 05:30 Est GFR ( Amer) > 60 12/15/18 05:30 Est GFR (Non-Af Amer) > 60 12/15/18 05:30 Random Glucose 87 mg/dL (70-110) 12/15/18 05:30 Calcium 9.3 mg/dL (8.4-10.5) 12/15/18 05:30 Phosphorus 3.3 mg/dL (2.5-4.5) 12/11/18 06:00 Magnesium 1.9 mg/dL (1.7-2.2) 12/11/18 06:00 Total Bilirubin 0.5 mg/dL (0.2-1.3) 12/15/18 05:30 AST 54 U/L (17-59) 12/15/18 05:30 ALT 76 U/L (7-56) H 12/15/18 05:30 Alkaline Phosphatase 163 U/L (38-126) H 12/15/18 05:30 Total Protein 6.6 g/dL (5.8-8.3) 12/15/18 05:30 Albumin 3.6 g/dL (3.0-4.8) 12/15/18 05:30 Globulin 3.0 gm/dL 12/15/18 05:30 Albumin/Globulin Ratio 1.2 (1.1-1.8) 12/15/18 05:30 Triglycerides 55 mg/dL (35-160) 12/10/18 22:03 Cholesterol 160 mg/dL (130-200) 12/10/18 22:03 LDL Cholesterol Direct 94 mg/dL (0-129) 12/10/18 22:03 HDL Cholesterol 50 mg/dL (29-60) 12/10/18 22:03 Lipase 4096 U/L (23-300) H 12/15/18 05:30 Urine Color Yellow (YELLOW) 12/13/18 22:53 Urine Appearance Clear (CLEAR) 12/13/18 22:53 Urine pH 8.5 (4.7-8.0) 12/13/18 22:53 Ur Specific [place] 1.015 (1.005-1.035) 12/13/18 22:53 Urine Protein Negative mg/dL (<30 mg/dL) 12/13/18 22:53 Urine Glucose (UA) Negative mg/dL (NEGATIVE) 12/13/18 22:53 Urine Ketones Negative mg/dL (NEGATIVE) 12/13/18 22:53 Urine Blood Negative (NEGATIVE) 12/13/18 22:53 Urine Nitrate Negative (NEGATIVE) 12/13/18 22:53 Urine Bilirubin Negative (NEGATIVE) 12/13/18 22:53 Urine Urobilinogen 1.0 E.U./dL (<1 E.U./dL) H 12/13/18 22:53 Ur Leukocyte Esterase Negative [place]/uL (NEGATIVE) 12/13/18 22:53 Alcohol, Quantitative < 10 mg/dL (0-10) 12/10/18 20:30 Hepatitis A IgM Ab Negative (NEGATIVE) 12/12/18 07:36 Hep Bs Antigen Negative (NEGATIVE) 12/12/18 07:36 Hep B Core IgM Ab Negative (NEGATIVE) 12/12/18 07:36 Hepatitis C Antibody Negative (NEGATIVE) 12/12/18 07:36 Attending/Attestation - Attestation I have personally seen and examined this patient.: Yes I have fully participated in the care of the patient.: Yes I have reviewed all pertinent clinical information, including history, physical exam and plan: Yes Notes (Text): 12/15/18 38 year old male with past medical history of cystic fibrosis who presented with epigastric pain found to have pancreatitis secondary to alcohol vs gallstones as seen on ultrasound. He was seen by GI and surgery who planned for cholecystectomy however postpone surgery due to elevated lipase. Patient's symp toms however improved and he was tolerating diet which was advanced. LFTs also improved. Surgery recommended elective cholecystectomy. Patient is discharged home to follow up with pmd. Follow up with surgery for elective cholecystectomy. Counselled on alcohol abstinence. Cody Felton MD Hospitalist.
--- NOTE | 2018-12-16 19:23 | CP.PCM.PN ---
<Mnauel Moses - Last Filed: 12/16/18 19:21> Subjective - Date & Time of Evaluation Date of Evaluation: 12/14/18 Time of Evaluation: 19:21 - Subjective Subjective: Surgery Pt seen and evaluted. Surgery was planned for today, however cancelled because of elevated lipase. Pain controlled. Denies fever, nausea, vomiting. Objective - Vital Signs/Intake and Output Vital Signs (last 24 hours): Temp Pulse Resp BP Pulse Ox 97.1 F L 55 L 22 111/76 95 12/15/18 14:00 12/15/18 14:00 12/15/18 14:00 12/15/18 14:00 12/15/18 14:00 - Labs Labs: 12/15/18 05:30 12/15/18 05:30 PT 13.5 SECONDS (9.4-12.5) H 12/13/18 20:10 INR 1.18 12/13/18 20:10 APTT 30.7 Seconds (25.1-36.5) 12/13/18 20:10 - Constitutional Appears: No Acute Distress - Head Exam Head Exam: ATRAUMATIC, NORMAL INSPECTION, NORMOCEPHALIC - Eye Exam Eye Exam: EOMI, Normal appearance, PERRL Pupil Exam: NORMAL ACCOMODATION, PERRL - ENT Exam ENT Exam: Mucous Membranes Moist, Normal Exam - Neck Exam Neck Exam: Normal Inspection - Respiratory Exam Respiratory Exam: NORMAL BREATHING PATTERN - Cardiovascular Exam Cardiovascular Exam: REGULAR RHYTHM - GI/Abdominal Exam GI & Abdominal Exam: Soft. absent: Distended, Guarding, Rigid, Tenderness - Exam Exam: NORMAL INSPECTION - Extremities Exam Extremities Exam: Full ROM, Normal Capillary Refill, Normal Inspection. absent: Joint Swelling, Pedal Edema - Back Exam Back Exam: NORMAL INSPECTION - Neurological Exam Neurological Exam: Alert, Awake, CN II-XII Intact, Normal Gait, Oriented x3 - Psychiatric Exam Psychiatric exam: Normal Affect, Normal Mood - Skin Skin Exam: Dry, Intact, Normal Color, Warm Assessment and Plan - Assessment and Plan (Free Text) Assessment: 38M w/ pancreatitis 2/2 gallstone vs ETOH vs CF Plan: - diet as tolerated - f/u AM labs - Trend lipase & liver enzymes - pain control PRN - encourage OOB and ambulation - serial abd exams - Will continue to monitor to determine surgical intervention - c/s Gastroenterology; all recs appreciated - discussed w/ Dr. Peacock surgical attending <Sage Peacock - Last Filed: 12/16/18 20:28> Objective - Vital Signs/Intake and Output Vital Signs (last 24 hours): Temp Pulse Resp BP Pulse Ox 97.1 F L 55 L 22 111/76 95 12/15/18 14:00 12/15/18 14:00 12/15/18 14:00 12/15/18 14:00 12/15/18 14:00 - Labs Labs: 12/15/18 05:30 12/15/18 05:30 PT 13.5 SECONDS (9.4-12.5) H 12/13/18 20:10 INR 1.18 12/13/18 20:10 APTT 30.7 Seconds (25.1-36.5) 12/13/18 20:10 Attending/Attestation - Attestation I have fully participated in the care of the patient.: Yes I have reviewed all pertinent clinical information, including history, physical exam and plan: Yes Notes (Text): Pt has Elevated lipase today Repeat Lipase in am Liquid diet c.w current mx Plan d.w pt in detail
== END 2018-12-15 18:14 | disposition home or self-care (01) | DRG 282 ==
LOC: ED 20:15 → ERH 23:25 → 5RNO 12-11 00:51 → OBSVTOIN 12-11 18:14
PROVIDERS: ADMIT Internal Medicine; ATTEND Internal Medicine
DX: K85.10 Biliary acute pancreatitis without necrosis or infection (principal); K80.20 Calculus of gallbladder without cholecystitis without obstruction; R18.8 Other ascites; E84.9 Cystic fibrosis, unspecified; F12.90 Cannabis use, unspecified, uncomplicated; F17.210 Nicotine dependence, cigarettes, uncomplicated

== ENCOUNTER 2019-01-11 13:10 | Outpatient (CLI) | payer MEDICAID | END 2019-01-11 13:11 | disposition home or self-care (01) | LOC: LAB 13:10 | DX: K51.00 Ulcerative (chronic) pancolitis without complications (principal) ==